=== PATIENT | male | born 1945 | race Caucasian/White ===

== ENCOUNTER 2024-07-16 17:06 | Inpatient (IN) | payer OTHER, SELFPAY ==
[2024-07-16] VITALS (13 sets, daily range): BP systolic 115–160; BP diastolic 55–76; BMI 23.7; BMI 23.2
--- NOTE | 2024-07-16 11:05 | ED.GENMED ---
History of Present Illness
<Yoselin Duffy, CORROSION TECHNICIAN - Last Filed: 07/16/24 16:19>
General
Chief Complaint: Generalized Pain
Source: patient
Exam Limitations: none
Time Seen by Provider: 07/16/24 11:05
Nursing documentation reviewed up to this point in time: agreed with
History of Present Illness
History of Present Illness:
79-year-old male with history of HTN was well, doing yard work, lifting 50 lb bags until end of May when he started feeling fatigued, developing weakness and muscle and joint pains that have gradually progressed over the past 6 weeks. His
appetite has been poor, has lost 20 lbs during this time. He has pain in his shoulders, upper back, elbows and hips. The pain 'moves around' and sometimes feels 'like my tendons' are inflamed. Pains are constant, no relieving or aggravating factors.
Saw PCP twice and had lab work at [facility] and no results available yet.
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 On Gabapentin
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
Past History
<Yoselin Duffy, CORROSION TECHNICIAN - Last Filed: 07/16/24 16:19>
Past History
ED Past Medical History: Cancer (tongue CA), HTN and Other (neuropathy upper extremities)
ED Past Surgical History: Orthopedic (C5-6 fractures)
Social History
Tobacco: Non-smoker
Alcohol: None
Personal:
Living: with family
Review of Systems
<Yoselin Duffy, CORROSION TECHNICIAN - Last Filed: 07/16/24 16:19>
Review of Systems
Allergies reviewed?: Yes
All Other Systems: ROS reviewed and negative except as documented in HPI and ROS
Constitutional: Reports fatigue; Denies fever
EENT: Denies sore throat
Respiratory: Denies trouble breathing
Cardiac: Denies chest pain, diaphoresis, palpitations or syncope
ABD/GI: Reports constipated and anorexia; Denies abdominal pain, nausea, vomiting, diarrhea, bloody stools or black stools
: Denies dysuria, frequency or difficulty voiding
Musculoskeletal: Reports joint pain and muscle pain; Denies edema
Skin: Reports no symptoms
Neurological: Reports numbness (neuropathy upper extremities (chronic)); Denies dizzy or headache
Hematologic/Lymphatic: Reports no symptoms
Phy Exam
<Yoselin Duffy, CORROSION TECHNICIAN - Last Filed: 07/16/24 16:19>
Physical Exam
Physical Exam:
GENERAL: No acute distress. A&Ox3. Frail appearing
CONSTITUTIONAL: Afebrile.
EYES: clear, conjunctivae normal
ENMT: moist mucus membranes, Pharynx nl
RESPIRATORY: Regular respirations, nonlabored, lungs clear.
CARDIOVASCULAR: Regular rate and rhythm, no murmurs, no rubs.
GI: Soft, nontender, normal BS
MUSCULOSKELETAL: Non tender extremities and trunk to palpation or movement. Moves slowly due to feeling weak. Needs help sitting up. Moving all extremities well and without pain, well perfused. No edema. OOB and ambulating independently but slowly
and with right hip discomfort
SKIN: Warm, dry, pale
PSYCH: Normal mood and affect. Well kept, interactive and appropriate
NEUROLOGIC: Awake, alert and oriented. No focal neurological deficits
Course
<Yoselin Duffy, CORROSION TECHNICIAN - Last Filed: 07/16/24 16:19>
Orders/Labs/Results
Orders:
Orders
07/16/24 11:16
0.9% Sodium Chloride 1000 ml [Nss] 1,000 ml IV BOLUS
07/16/24 11:25
Basic Metabolic Panel Urgent
CRP [C-Reactive Protein] Urgent
Complete Blood Count/With Diff Urgent
Creatine Phosphokinase Urgent
Comment: ADD ON
Lyme Progressive Urgent
Sed Rate [Erythrocyte Sed Rate] Urgent
07/16/24 11:26
Rheumatoid Factor [Rheumatoid Agglutinin] Urgent
07/16/24 13:48
Add On- LAB Urgent
Tests Added?: CPK
07/16/24 14:12
NEUROLOGY CONSULT Urgent
Consulting Provider: Lawrence Mehta
Was physician already notified: Yes
Reason for consult: progressive weakness worse in legs
07/16/24 15:20
EMG [Electromyography] Routine
07/16/24 15:53
Add On- LAB Urgent
Tests Added?: iron, ferritin, tibc, folate, vit b12
07/16/24 16:15
Add On- LAB Urgent
Tests Added?: LFTs
LFT [Nmjbe-Ydzz-Eztjdxf] Urgent
Potassium Urgent
07/16/24 16:17
Urinalysis Routine
Date Specimen was Collected: 07/16/24
Time Specimen was Collected: 16:18
Urine Osmolality Random [Osmolality, Random Urine] Routine
Urine Sodium Routine
Abnormal Lab Results
07/16/24
11:25
RBC 3.81 L 10^6/uL
(4.70-6.10)
Hgb 10.6 L g/dL
(13.0-18.0)
Hct 32.5 L %
(39.0-52.0)
MCHC 32.6 L g/dL
(33.0-37.0)
RDW 17.3 H %
(11.5-14.5)
Abs Immat Gran (auto) 0.5 H 10^3/uL
(0-0.05)
Absolute Neuts (auto) 6.8 H 10^3/uL
(1.4-6.5)
Absolute Lymphs (auto) 0.5 L 10^3/uL
(1.2-3.4)
Absolute Monos (auto) 1.1 H 10^3/uL
(0.1-0.6)
Immature Gran % 5.9 H %
(0-0.5)
Neutrophils % 75.8 H %
(42.2-75.2)
Lymphocytes % 5.8 L %
(20.5-51.1)
Monocytes % 12.1 H %
(1.7-9.3)
ESR 133 H mm/hour
(0-20)
Sodium 130 L mmol/L
(135-145)
BUN 27 H mg/dl
(9-20)
C-Reactive Protein 213.60 H mg/L
(0.0-10.00)
07/16/24 11:25
Vital Signs
Initial and Last Documented VS:
Initial Vital Signs
Temp Pulse Resp BP Pulse Ox
98.4 F 86 18 116/76 99
07/16/24 10:35 07/16/24 10:35 07/16/24 10:35 07/16/24 10:35 07/16/24 10:35
Last Documented Vital Signs
Temp Pulse Resp BP Pulse Ox
98.4 F 75 16 116/76 97
07/16/24 10:35 07/16/24 11:35 07/16/24 11:35 07/16/24 10:35 07/16/24 11:35
<Marely Corral MD - Last Filed: 07/16/24 14:10>
Orders/Labs/Results
Orders:
Orders
07/16/24 11:16
0.9% Sodium Chloride 1000 ml [Nss] 1,000 ml IV BOLUS
07/16/24 11:25
Basic Metabolic Panel Urgent
CRP [C-Reactive Protein] Urgent
Complete Blood Count/With Diff Urgent
Creatine Phosphokinase Urgent
Comment: ADD ON
Lyme Progressive Urgent
Sed Rate [Erythrocyte Sed Rate] Urgent
07/16/24 11:26
Rheumatoid Factor [Rheumatoid Agglutinin] Urgent
07/16/24 13:48
Add On- LAB Urgent
Tests Added?: CPK
07/16/24 14:12
NEUROLOGY CONSULT Urgent
Consulting Provider: Lawrence Mehta
Was physician already notified: Yes
Reason for consult: progressive weakness worse in legs
07/16/24 15:20
EMG [Electromyography] Routine
07/16/24 15:53
Add On- LAB Urgent
Tests Added?: iron, ferritin, tibc, folate, vit b12
07/16/24 16:15
Add On- LAB Urgent
Tests Added?: LFTs
LFT [Qrphv-Rwhy-Cojiffx] Urgent
Potassium Urgent
07/16/24 16:17
Urinalysis Routine
Date Specimen was Collected: 07/16/24
Time Specimen was Collected: 16:18
Urine Osmolality Random [Osmolality, Random Urine] Routine
Urine Sodium Routine
Abnormal Lab Results
07/16/24
11:25
RBC 3.81 L 10^6/uL
(4.70-6.10)
Hgb 10.6 L g/dL
(13.0-18.0)
Hct 32.5 L %
(39.0-52.0)
MCHC 32.6 L g/dL
(33.0-37.0)
RDW 17.3 H %
(11.5-14.5)
Abs Immat Gran (auto) 0.5 H 10^3/uL
(0-0.05)
Absolute Neuts (auto) 6.8 H 10^3/uL
(1.4-6.5)
Absolute Lymphs (auto) 0.5 L 10^3/uL
(1.2-3.4)
Absolute Monos (auto) 1.1 H 10^3/uL
(0.1-0.6)
Immature Gran % 5.9 H %
(0-0.5)
Neutrophils % 75.8 H %
(42.2-75.2)
Lymphocytes % 5.8 L %
(20.5-51.1)
Monocytes % 12.1 H %
(1.7-9.3)
ESR 133 H mm/hour
(0-20)
Sodium 130 L mmol/L
(135-145)
BUN 27 H mg/dl
(9-20)
C-Reactive Protein 213.60 H mg/L
(0.0-10.00)
07/16/24 11:25
Vital Signs
Initial and Last Documented VS:
Initial Vital Signs
Temp Pulse Resp BP Pulse Ox
98.4 F 86 18 116/76 99
07/16/24 10:35 07/16/24 10:35 07/16/24 10:35 07/16/24 10:35 07/16/24 10:35
Last Documented Vital Signs
Temp Pulse Resp BP Pulse Ox
98.4 F 75 16 116/76 97
07/16/24 10:35 07/16/24 11:35 07/16/24 11:35 07/16/24 10:35 07/16/24 11:35
<Yoselin Duffy, CORROSION TECHNICIAN - Last Filed: 07/16/24 16:19>
MDM/Problems Addressed
Differential Diagnosis Includes:
PMR, neoplasm, demyelinating process, GBS
MDM/Problems Addressed:
79-year-old male with history of HTN was well, doing yard work, lifting 50 lb bags until end of May when he started feeling fatigued, developing weakness and muscle and joint pains that have gradually progressed over the past 6 weeks. His
appetite has been poor, has lost 20 lbs during this time. He has pain in his shoulders, upper back, elbows and hips. The pain 'moves around' and sometimes feels 'like my tendons' are inflamed. Pains are constant, no relieving or aggravating factors.
Saw PCP twice and had lab work at [facility] and no results available yet.
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 On Gabapentin
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
Afebrile, appears moderately ill, frail, pale
12:30 PM:
CBC showing chronic anemia
CMP: Sodium 130, BUN 27, otherwise normal
CRP: Elevated at 213.6
1:30 p.m.
Sed rate:elevated 133
No sign of Giant Cell Arteritis
2:30 p.m.
Case discussed with Dr. Corral who examined pt.
Recommends neuro consult for progressive weakness, worse in legs
Dr. Mehta, Neuro consulted and in : requests admit, no head CT or lumbar puncture, he is ordering EMG
Hospitalist notified of admission.
<Yoselin Duffy NP - Last Filed: 07/16/24 16:19>
*Critical Care Note
Total Time (30-74mins, 75-104mins- exclusive of procedures): Not Applicable
ED Attending Note
<Yoselin Duffy CORROSION TECHNICIAN - Last Filed: 07/16/24 16:19>
-
Portions of this chart may have been created with voice recognition software.� Occasional wrong word or��sound alike� substitutions may have occurred due to the inherent limitations of voice recognition software.
<Marely Corral MD - Last Filed: 07/16/24 14:10>
ED Attending Note
Patient seen and examined by attending physician: Yes
I performed the substantive portion of visit, reviewed & personally made and approve the management plan that is documented in note by myself or JUSTIN.: Yes
ED Attending Note:
79-year-old male presents emergency department with a 6-week history of just not feeling well. This been a gradual onset of symptoms over this period of time. 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 Progressively, over the last 6 weeks, he has been feeling more more unwell. He denies cold or flu symptoms, fever or chills. He describes loss of appetite with a weight loss, and increasing generalized weakness. He is still able to do
his ADLs and walk without assistance. He saw his primary care doctor twice and has had ongoing workup for this. He had a colonoscopy 2 weeks ago which was generally unremarkable. He describes his joints hurting him in the area of pain will
migrate from 1 joint to another. He also notes worsening of his baseline upper extremity neuropathy. He also states that he feels like his skin 'bothers me', and describes feeling like it hurts or pickering in the anterior chest area. He denies
associated rash with this. On exam, patient pleasant awake alert. Heart regular rate and rhythm, lungs CTA, abdomen soft and nontender. Patient observed walking back from the bathroom and into bed without difficulty. 2+ patellar pulses, motor 5
out of 5 upper extremity, 4 out of 5 lower extremity bilaterally. Sensation intact to light touch, Crill nerves II through XII intact, [id number] normal. ESR and CRP markedly elevated, otherwise workup thus far generally unremarkable here.
Discharge Plan
Departure
Patient Disposition: Admit
Date of Disposition: 07/16/24
Time of Disposition: 15:10
Presentation/result/management discussed w/ accepting MD/: Hospitalist
Condition: Fair
Discharge Problem:
Generalized weakness, Abnormal weight loss
Prescriptions:
No Action
losartan 50 mg Tablet
50 mg PO DAILY
amlodipine 5 mg Tablet
5 mg PO DAILY
gabapentin 300 mg Tablet
300 mg PO TID
Referrals:
Simona Rod DO [Family Provider] -
Interventions
Interventions:
*Risk Screen - Suicide Last Done: 07/16/24 10:35
*General Assessment Last Done: 07/16/24 10:35
*Neglect/Abuse Screening Last Done: 07/16/24 11:35
*ED- Fall Risk Assessment Last Done: 07/16/24 11:35
*ED COVID-19 Vaccine History Last Done: 07/16/24 10:35
Discharge Date and Time
Print Language: TURKMEN
[2024-07-16] MEDS: NSS 1000 IV ×2 (11:33→19:50)
[2024-07-16 11:43] LABS: Hematocrit 32.5 % (39.0-52.0); Hemoglobin 10.6 g/dL (13.0-18.0); Mean Corp Hgb Conc. 32.6 g/dL (33.0-37.0); Mean Corpuscular Hgb 27.8 pg (27.0-31.0); Mean Corpuscular Volume 85.3 fL (80.0-94.0); Mean Platelet Volume 9.1 fL (7.4-10.4); Platelet Count 262 10^3/uL (130-400); Red Blood Cell Count 3.81 10^6/uL (4.70-6.10); Red Cell Dist. Width 17.3 % (11.5-14.5)
[2024-07-16 12:17] LABS: Blood Urea Nitrogen 27 mg/dl (9-20); Estimated Creatinine Clearance 88 ml/min; Glucose 96 mg/dl (70-99); Sodium 130 mmol/L (135-145); eGFR > 60.00
[2024-07-16 12:18] LABS: Calcium 9.1 mg/dl (8.4-10.2); Carbon Dioxide 28 mmol/L (22-30); Chloride 98 mmol/L (98-107)
[2024-07-16 12:27] LABS: % Basophils 0.3 % (0-2); % Eosinophils 0.1 % (0-6); % Immature Granulocytes 5.9 % (0-0.5); % Lymphocytes 5.8 % (20.5-51.1); % Monocytes 12.1 % (1.7-9.3); % Neutrophils 75.8 % (42.2-75.2); Absolute Immature Granulocytes 0.5 10^3/uL (0-0.05); Absolute Lymphocytes 0.5 10^3/uL (1.2-3.4); Absolute Monocytes 1.1 10^3/uL (0.1-0.6); Absolute Neutrophils 6.8 10^3/uL (1.4-6.5); Nucleated Red Blood Cells % 0 % (-)
[2024-07-16 12:48] LABS: Erythrocyte Sed Rate 133 mm/hour (0-20)
[2024-07-16 14:20] LABS: Rheumatoid Agglutinin Less Than 10 IU (<10 IU)
--- NOTE | 2024-07-16 15:21 | CON.NEURO ---
Neuro Assessment/Plan
Assessment
6 weeks of progressive weakness/numbness, diffuse pain. Exam with lower ext weakness, vibratory loss, 1+ reflexes
concern for GBS/CIDP
CRP 213, ESR 133
RF <10
Plan
Will admit for NCS/EMG, spoke with Dr Mcnally, who will add patient for tomorrow
as symptoms have been 6 weeks, will hold off on IVIG until after EMG
Consultation
Order
Date of Consultation: 07/16/24
Requesting Provider: Yoselin Duffy
Reason for Consult: Weakness
Subjective/Objective
Subjective Data
Date of Service: July 16, 2024
From ED notes:
79-year-old male with history of HTN was well, doing yard work, lifting 50 lb bags until end of May when he started feeling fatigued, developing weakness and muscle and joint pains that have gradually progressed over the past 6 weeks. His
appetite has been poor, has lost 20 lbs during this time. He has pain in his shoulders, upper back, elbows and hips. The pain 'moves around' and sometimes feels 'like my tendons' are inflamed. Pains are constant, no relieving or aggravating factors.
Saw PCP twice and had lab work at [facility] and [facility] and no results available yet.
Dec 2022 fell, went to [place], fx C5-6, surgery, now with neuropathy both hands and arms. On Gabapentin
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
To me, he admits to the above, ascending weakness, numbness in his legs, which are new x6 weeks. Tingling fingertips is old after a cervical spine injury. denies shortness of breath, bowel or bladder symptoms
Objective Data
Vital Signs
Temp Pulse Resp BP Pulse Ox
36.9 C 75 16 116/76 97
07/16/24 10:35 07/16/24 11:35 07/16/24 11:35 07/16/24 10:35 07/16/24 11:35
Lab Results
07/16/24 11:25
07/16/24 11:25
Sodium 130 mmol/L (135-145) L 07/16/24 11:25
Potassium mmol/L (3.5-5.1) 07/16/24 11:25
BUN 27 mg/dl (9-20) H 07/16/24 11:25
Glucose 96 mg/dl (70-99) 07/16/24 11:25
Calcium 9.1 mg/dl (8.4-10.2) 07/16/24 11:25
Patient Allergies
No Known Allergies Allergy (Verified 07/16/24 10:41)
Physical Exam
-
Awake and alert
speech clear
VFF, EOMI, face symmetric
full strength b/l UE, minimal antigravity b/l LE
absent vibration sense RUE and both knees
DTR absent UE, 1+ knees, trace ankle jerks.
Medications
-
Home Medications
�Medication �Instructions �Recorded
amlodipine 5 mg tablet 5 mg PO DAILY 07/16/24
gabapentin 300 mg tablet 300 mg PO TID 07/16/24
losartan 50 mg tablet 50 mg PO DAILY 07/16/24
--- NOTE | 2024-07-16 15:45 | HPS.HSE ---
Family Physician
-
Family Physician: Simona Rod
Chief Complaint
-
Progressive Weakness
History of Present Illness
Patient is a 79 y/o male past medical history of hypertension and upper extremity neuropathy who presents with progressive weakness. Patient reports worsening symptoms over weeks to months. He reports migrating joints pains involving the shoulders,
upper back, elbows and hips. He reports 'skin pain' describing a burning sensation. Symptoms have progressed to the point he is now having trouble walking. He reports very appetite, and has lost 20lbs over the past few months. He denies any
recent illnesses or recent vaccinations.
Medical History
Past Medical History
Past Medical History: Reports Other
Additional Past Medical History:
Essential Hypertension
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
Tongue Cancer s/p Chemo and Radiation
Past Surgical History: Reports Other
Additional Past Surgical History:
Cervical Spine Surgery
Left Shoulder Surgery
Social History
Tobacco: Non-smoker
Alcohol: None
Personal:
Family History
Family History: Not pertinent
Allergies / Home Medications
Allergies reflects when Allergies were last updated in [facility].
Home Medications with original date entered in [facility]
Allergy/Medication List:
Allergies
Allergy/AdvReac Type Severity Reaction Status Date / Time
No Known Allergies Allergy Verified 07/16/24 10:41
Home Medications
amlodipine 5 mg tablet 5 mg PO DAILY 07/16/24
gabapentin 300 mg tablet 300 mg PO TID 07/16/24
losartan 50 mg tablet 50 mg PO DAILY 07/16/24
Review of Systems
-
A 12 point ROS was completed and negative except as noted: Yes
Constitutional: Denies Fever or Chills
Respiratory: Denies Cough or Trouble Breathing
Cardiac: Denies Chest Pain or Palpitations
Abdomen/GI: Denies Abdominal Pain, Nausea or Vomiting
Physical Exam
Vital Signs
Vital Signs
Temp Pulse Resp BP Pulse Ox
98.4 F 75 16 116/76 97
07/16/24 10:35 07/16/24 11:35 07/16/24 11:35 07/16/24 10:35 07/16/24 11:35
Physical Exam
General: Comfortable and Conversant
HEENT: Moist mucous membranes and Atraumatic
Respiratory: Clear and Non Labored Respirations
Cardiac: S1/S2 and Regular Rhythm
GI: Soft and Non Tender
Rectal: Deferred by Provider
Musculoskeletal: No Clubbing, No Cyanosis and No Edema
Skin: Warm, Dry and Other (Poor coloration)
Neuro: Awake, Alert, Oriented and Other (5/5 Strength Bilateral UE; 1/5 Strength Bilateral Lower Ext)
Psych: Calm
Laboratory Results
-
07/16/24 11:25
07/16/24 11:25
Laboratory Results
Total Bilirubin Cancelled 07/16/24 11:25
AST Cancelled 07/16/24 11:25
ALT Cancelled 07/16/24 11:25
Alkaline Phosphatase Cancelled 07/16/24 11:25
Data Reviewed
-
Lab Data: Labs Reviewed by me
Impression/Plan
-
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
-Reviewed Neurology Consult
-Plan for EMG tomorrow
-Consult PT/OT
-Check Lyme, Vit B12 and TSH
Normocytic Anemia, patient denies prior history of anemia
-Check iron studies, vitamin b12 and folic acid level
Hyponatremia, mild possibly related to poor oral intake
-Check urinalysis, urine sodium and urine osmo
-Give 1L NSS due to poor oral intake and elevated BUN
-Recheck sodium in AM
Essential Hypertension
-Continue amlodipine and losartan
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
-Continue Gabapentin
DVT proph: SCDs
Code Status: Full Code
[2024-07-16 15:50] LABS: Creatine Phosphokinase 82 U/L (55-170)
--- NOTE | 2024-07-16 16:50 | W.PN.UPDATE ---
Update Note
Progress Note Update
This is an addendum to H&P written by Brenda Ramirez in 07/16/2024.� Patient seen and examined independently with PA.
79-year-old male past medical history of hypertension, upper extremity neuropathy, C5-C6 fracture, tongue cancer status post chemotherapy/radiation, presenting with worsening weakness of the lower extremities, burning of the whole body below the
nipples, joint pains for the past few months with weight loss.
Labs show anemia with hemoglobin of 10.6.� Hyponatremia sodium of 130.� Elevated inflammatory markers.
Noticeably weak on examination of the lower extremities.
Neurology concern for GBS and arranging for inpatient nerve conduction study/EMG tomorrow.� IVIG being considered tomorrow after EMG.
Anemia workup.� Check CMP to evaluate liver function.
[2024-07-16 16:52] LABS: Direct Bilirubin 0.3 mg/dl (0.0-0.4); Iron 58 ug/dl (49-181); Total Bilirubin 0.8 mg/dl (0.2-1.3)
[2024-07-16 17:00] LABS: Percent Saturation 29 % (20-50); Total Iron Binding Capacity 199 ug/dl (261-462)
[2024-07-16 17:05] LABS: ALT (SGPT) < 10 U/L (0-50); AST (SGOT) 100 U/L (17-59); Albumin 3.4 g/dl (3.5-5.0); Alkaline Phosphatase 413 U/L (38-126); Direct Bilirubin 0.3 mg/dl (0.0-0.4); Potassium 4.8 mmol/L (3.5-5.1); Total Protein 5.9 g/dl (6.3-8.2)
[2024-07-16 17:34] LABS: Urine Albumin Negative (Neg - Trace); Urine Bilirubin Negative (Negative); Urine Character Clear (Clear); Urine Color Yellow; Urine Glucose Negative (Negative); Urine Ketone Negative (Negative); Urine Leukocyte Negative (Negative); Urine Nitrite Negative (Negative); Urine Occult Blood Negative (Negative); Urine Urobilinogen Negative (Neg - 1+)
--- NOTE | 2024-07-16 17:50 | EDRN ---
this RN called the receiving unit and notified them that paper report was going to be tubed up
[2024-07-16 18:01] LABS: Osmolality Urine 538 mOsm/kg (300-900)
[2024-07-16 18:11] LABS: Folate 5.4 ng/ml (2.76-20); Vitamin B12 430 pg/ml (239-931)
[2024-07-16 18:13] LABS: Urine Sodium 128 mmol/L (30-90)
[2024-07-16 19:15] LABS: ALT (SGPT) 11 U/L (0-50); AST (SGOT) 107 U/L (17-59); Albumin 3.4 g/dl (3.5-5.0); Alkaline Phosphatase 411 U/L (38-126); Total Protein 6.2 g/dl (6.3-8.2)
[2024-07-16] MEDS: NEURONTIN 300 MG PO (21:02)
[2024-07-17] VITALS (8 sets, daily range): BP systolic 96–150; BP diastolic 52–77; PULSE 78; BMI 23.4
--- NOTE | 2024-07-17 04:37 | PTCARENOTE ---
Oral care was not performed on patient because they stated that it would be their preference to brush their teeth in the morning.
[2024-07-17 05:48] LABS: Hematocrit 28.7 % (39.0-52.0); Hemoglobin 9.5 g/dL (13.0-18.0); Mean Corp Hgb Conc. 33.1 g/dL (33.0-37.0); Mean Corpuscular Hgb 27.9 pg (27.0-31.0); Mean Corpuscular Volume 84.4 fL (80.0-94.0); Mean Platelet Volume 9.2 fL (7.4-10.4); Platelet Count 242 10^3/uL (130-400); Red Cell Dist. Width 17.2 % (11.5-14.5); White Blood Cell Count 7.5 10^3/uL (4.8-10.8)
[2024-07-17 06:13] LABS: Blood Urea Nitrogen 17 mg/dl (9-20); Calcium 8.9 mg/dl (8.4-10.2); Carbon Dioxide 28 mmol/L (22-30); Chloride 98 mmol/L (98-107); Estimated Creatinine Clearance 88 ml/min; Glucose 97 mg/dl (70-99); Potassium 4.3 mmol/L (3.5-5.1); Sodium 131 mmol/L (135-145); eGFR > 60.00
--- NOTE | 2024-07-17 06:45 | PTCARENOTE ---
Patient arrived on unit @1926 via stretcher from ED, stand and pivot from stretcher to bed. Patient AAOx3, c/o 2/10 to whole body. VSS, skin assessment completed, oriented to unit, felipe eugene within reach.
[2024-07-17] MEDS: NEURONTIN 300 MG PO ×3 (08:38→22:11)
[2024-07-17] MEDS: NORVASC 5 MG PO (08:39)
[2024-07-17] MEDS: COZAAR 50 MG PO (08:39)
--- NOTE | 2024-07-17 11:43 | W.PN.HOSP.TC ---
Today's Communication/Plan
-
Assessment / Plan
Assessment / Plan
NAD, thin
Scleral Anicteric
MMM
No JVD
CTABL
RRR, S1/S2
Soft, NT, ND, BS+
Warm, Dry
AAOx3, bilateral upper and lower extremity weakness worse in the right than the left
Generalized weakness Unclear as to etiology if this is a inflammatory demyelinating polyneuropathy versus Guillain-Shi� syndrome, motor neuron disorder
Less likely multiple sclerosis/myelopathy, CVA as weakness is not focal and is more global. And due to the chronicity of symptomatology being around 3 months makes to 4 more options more likely.
With symptomatology starting in the wintertime less likely Lyme
-EMG
-May require IVIG
-Neurology consult
-May require LP
-PT OT
-Lyme pending
-TSH 1.4
-B12 430/Folate 5.4
Transaminitis
-Will check a right upper quadrant ultrasound
-GGT for the a.m.
-Repeat LFTs
Hyponatremia
-Likely related to poor po intake
-Expect to improve with nuturtional intake
HTN
-Continue antihypertensive
Neuropathy
-Continue Gabapentin
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
Anticipated Discharge: > 48 hours
Subjective/Interval History
-
Date of Service: July 17, 2024
Seen and examined. No new complaints. No acute overnight events.
Continues to feel weakness
Sitting in chair feeling weak, unchanged
Objective Data
-
Labs:
Laboratory Results
07/17/24
05:11
WBC 7.5
Hgb 9.5 L
Hct 28.7 L
Plt Count 242
Sodium 131 L
Potassium 4.3
Chloride 98
Carbon Dioxide 28
BUN 17
Creatinine 0.7
Glucose 97
Calcium 8.9
Vital Signs:
Vital Signs
Temp Pulse Resp BP Pulse Ox
98.7 F 76 17 125/63 95
07/17/24 07:47 07/17/24 07:47 07/17/24 07:47 07/17/24 07:47 07/17/24 07:47
I&O
07/16/24 07/17/24 07/18/24
06:59 06:59 06:59
Intake Total 1140 / 1140
Output Total 620 / 620
Balance 520 / 520
--- NOTE | 2024-07-17 14:57 | NS.EMG ---
Electromyogram (EMG) Study
EMG/NCS Summary
EMG/nerve conduction study of the upper and lower limbs was completed at the patient's bedside.
Electrodiagnostic Impressions:
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
Severe chronic bilateral median neuropathy at the wrist (carpal tunnel syndrome)
Full dictated report, tabular data, and waveforms to follow.
--- NOTE | 2024-07-17 15:31 | CM ---
Pt off floor for testing . Spoke with Chula. Chula cares for her brother and dad in their home. They lives in 2 story with o step to enter and 12 steps to bed and bathroom. He is assisted in all activities of daily living.Will need PT OT for dc
plan. No Adaptive devices.
Pt had [facility] hx / [facility] history
Pharmacy [facility]
PCP DR Jelly Tadeo
PLAN Home with possible VN depending on PT OT evals
--- NOTE | 2024-07-17 19:05 | W.PN.NEURO.1 ---
Today's Communication / Plan
-
CT head, Chest, abdomen, pelvis
patient aware of liver masses, concern for mets
Neuro Assessment/Plan
Assessment
6 weeks of progressive weakness/numbness, diffuse pain. Exam with lower ext weakness, vibratory loss, 1+ reflexes
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
CRP 213, ESR 133
RF <10
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
Liver ultrasound: 3 masses, concern for mets
I spoke with patient and with Dr Shaw; plan for CT head, Chest, abdomen, pelvis
Subjective/Objective
Subjective Data
Date of Service: July 17, 2024
feels about the same
Objective Data
Vital Signs
Temp Pulse Resp BP Pulse Ox
37.4 C 84 17 115/52 95
07/17/24 18:42 07/17/24 18:42 07/17/24 18:42 07/17/24 18:42 07/17/24 18:42
Lab Results
07/17/24 05:11
07/17/24 05:11
Sodium 131 mmol/L (135-145) L 07/17/24 05:11
Potassium 4.3 mmol/L (3.5-5.1) 07/17/24 05:11
BUN 17 mg/dl (9-20) 07/17/24 05:11
Glucose 97 mg/dl (70-99) 07/17/24 05:11
Calcium 8.9 mg/dl (8.4-10.2) 07/17/24 05:11
Vitamin B12 430 pg/ml (239-931) 07/16/24 11:25
Patient Allergies
No Known Allergies Allergy (Verified 07/16/24 10:41)
Physical Exam
-
Awake and alert
speech clear
VFF, EOMI, face symmetric
full strength b/l UE, minimal antigravity b/l LE
absent vibration sense RUE and both knees
DTR absent UE, 1+ knees, trace ankle jerks.
[2024-07-18 04:03] VITALS: BP 119/63
[2024-07-18 06:00] VITALS: BMI 22.9
[2024-07-18 06:08] LABS: Mean Corp Hgb Conc. 32.3 g/dL (33.0-37.0); Mean Corpuscular Hgb 27.4 pg (27.0-31.0); Mean Corpuscular Volume 84.9 fL (80.0-94.0); Mean Platelet Volume 9.2 fL (7.4-10.4); Platelet Count 258 10^3/uL (130-400); Red Blood Cell Count 3.65 10^6/uL (4.70-6.10); Red Cell Dist. Width 17.2 % (11.5-14.5); White Blood Cell Count 8.9 10^3/uL (4.8-10.8)
[2024-07-18 06:31] LABS: ALT (SGPT) 11 U/L (0-50); AST (SGOT) 78 U/L (17-59); Alkaline Phosphatase 442 U/L (38-126); Blood Urea Nitrogen 20 mg/dl (9-20); Calcium 9.1 mg/dl (8.4-10.2); Carbon Dioxide 28 mmol/L (22-30); Chloride 100 mmol/L (98-107); Direct Bilirubin 0.3 mg/dl (0.0-0.4); Estimated Creatinine Clearance 77 ml/min; GGTP 76 U/L (15-73); Glucose 93 mg/dl (70-99); Potassium 4.5 mmol/L (3.5-5.1); Sodium 135 mmol/L (135-145); Total Bilirubin 0.7 mg/dl (0.2-1.3); Total Protein 5.6 g/dl (6.3-8.2); eGFR > 60.00
[2024-07-18 07:05] VITALS: BP 126/60
[2024-07-18] MEDS: COZAAR 50 MG PO (08:25)
[2024-07-18] MEDS: NEURONTIN 300 MG PO ×3 (08:25→21:11)
[2024-07-18] MEDS: NORVASC 5 MG PO (08:27)
[2024-07-18] MEDS: OMNIPAQUE 50 ML PO (09:00)
--- NOTE | 2024-07-18 09:58 | W.PN.HOSP.TC ---
Today's Communication/Plan
-
Pending CT
will attept to discuss with ([phone]) after results
further mgmt as per neurology
Assessment / Plan
Assessment / Plan
NAD, thin
Scleral Anicteric
MMM
No JVD
CTABL
RRR, S1/S2
Soft, NT, ND, BS+
Warm, Dry
AAOx3, bilateral upper and lower extremity weakness worse in the right than the left
Generalized weakness Unclear as to etiology if this is a inflammatory demyelinating polyneuropathy versus Guillain-Shi� syndrome, motor neuron disorder vs paraneoplastic syndrome
Less likely multiple sclerosis/myelopathy, CVA as weakness is not focal and is more global. And due to the chronicity of symptomatology being around 3 months makes to 4 more options more likely.
With symptomatology starting in the wintertime less likely Lyme
-EMG
-May require IVIG
-Neurology consult
-May require LP
-PT OT
-Lyme pending
-TSH 1.4
-B12 430/Folate 5.4
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
-with new hepatic masses - CT head/Chest/Abd/Pelvis
Transaminitis
-upper quadrant ultrasound with multiple hepatic masses
-follow LFT
Hyponatremia
-Likely related to poor po intake
-Expect to improve with nuturtional intake
HTN
-Continue antihypertensive
Neuropathy
-Continue Gabapentin
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
Anticipated Discharge: > 48 hours
Subjective/Interval History
-
Date of Service: July 18, 2024
Objective Data
-
Labs:
Laboratory Results
07/18/24 07/18/24
05:20 05:21
WBC 8.9
Hgb 10.0 L
Hct 31.0 L
Plt Count 258
Sodium 135
Potassium 4.5
Chloride 100
Carbon Dioxide 28
BUN 20
Creatinine 0.8
Glucose 93
Calcium 9.1
Total Bilirubin 0.7
AST 78 H
ALT 11
Alkaline Phosphatase 442 H
Vital Signs:
Vital Signs
Temp Pulse Resp BP Pulse Ox
98.0 F 76 17 126/60 96
07/18/24 07:05 07/18/24 07:05 07/18/24 07:05 07/18/24 07:05 07/18/24 07:05
I&O
07/17/24 07/18/24 07/19/24
06:59 06:59 06:59
Intake Total 1140 / 1140 240 / 240
Output Total 620 / 620 360 / 360
Balance 520 / 520 240 / 240 -360 / -360
Review of Systems
-
History Source: Patient
Neuro: Reports Other (b/l LE weakness)
Physical Exam
-
General: No Apparent Distress
HEENT: Normocephalic
Respiratory: Clear to Auscultation
GI: Soft, Nontender and Nondistended
Neuro: Awake, Alert, Oriented and AO x 3
Psych: Calm
--- NOTE | 2024-07-18 12:59 | W.PN.UPDATE ---
Update Note
Progress Note Update
#Extensive heterogeneous hepatic lesions measuring up to 4.5 cm in the right hepatic lobe which likely represent hepatic metastasis
#diffuse osseous metastatic disease
#soft tissue nodularity within the lateral paraspinal soft tissues along the thoracic spine with extension into the spinal canal at the T6 level with associated high-grade canal stenosis
Advised close follow up with existent Oncology and ENT. Will attempt to contact Oncologist from [facility] who already managing patient
MRI spine as per neurology
[2024-07-18] MEDS: DECADRON 10 MG IV (14:31)
[2024-07-18 15:05] VITALS: BP 121/71
--- NOTE | 2024-07-18 15:15 | PN.CDI ---
Addendum entered and electronically signed by Nirmal Samuel MD 07/18/24 18:05:
no change to be made
Original Note:
CDI
- -
CDI:
Physician Documentation Request
Admit Date: 07/16/24 17:06
Dear Doctor Lizzie,
Please review the following and provide your response in the progress notes.
Clinical Indicators:
- 07/17 Intelligence Engineer note indicates moderate protein calorie malnutrition
- Unintentional weight loss >10% in 6 months
- Nutrient intake </= 75% estimated energy needs, >/= 1 month
Based on the above information and your assessment, which of the following most accurately represents the patient's nutritional status?
Moderate protein calorie malnutrition
Other (please specify)
Drums Criteria ([facility] Hospitalist 2017)
2 or more criteria must be present for either
non severe or severe malnutrition
Note that the criteria differs related to the
presence of an acute or chronic illness
Acute Illness Chronic Illness
Energy Intake Non Severe: <75% for >7 days Non Severe: <75% for >1 month
Severe: <50% for >5 days Severe: <75% for >1 month
Weight Loss Non Severe: 1-2% over 1 week Non Severe: 5% over 1 month
5% over 1 month 7.5% over 3 months
7.5% over 3 months 10% over 6 months
1 year N/A 20% over 1 year
Severe: >2% over 1 week Severe: >5% over 1 month
>5% over 1 month >7.5% over 3 months
>7.5% over 3 months >10% over 6 months
1 year N/A >20% over 1 year
Body Fat Non Severe: Mild Decrease Non Severe: Mild Loss
Severe: Moderate Decrease Severe: Severe Loss
Muscle Mass Non Severe: Mild Decrease Non Severe: Mild Loss
Severe: Moderate Decrease Severe: Severe Loss
Fluid Accumulation Non Severe: Mild Accumulation Non Severe: Mild Accumulation
Severe: Moderate to severe Severe: Moderate to severe
accumulation accumulation
Reduced Healthcare Translator Strength Non Severe: N/A Non Severe: N/A
Severe: Measurably reduced Severe: Measurably reduced
Additional criteria that can be used to Determine if Mild or Moderate Malnutrition (Merck Manual 2018)
Mild Moderate Severe
Albumin gm/dl <3.0 gm/dl <2.5 gm/dl <2.0 gm/dl
Pre Albumin mg/dl <15 gm/dl <10 mg/dl <5.0 mg/dl
BMI <18.5 <17 <16
Use of terms such as suspected, likely, concern for, or probable (associated with a specific diagnosis that is being evaluated, monitored, or treated as if it exists) are acceptable and can be coded in the inpatient setting, when documented at the
time of discharge.
Thank you,
Vinicius Elmore RN
CDI Specialist
Please use your independent medical judgment in providing your response.
[2024-07-18 23:45] VITALS: BP 115/63
[2024-07-19 05:55] LABS: Hematocrit 33.1 % (39.0-52.0); Mean Corp Hgb Conc. 33.2 g/dL (33.0-37.0); Mean Corpuscular Hgb 28.1 pg (27.0-31.0); Mean Corpuscular Volume 84.7 fL (80.0-94.0); Mean Platelet Volume 9.3 fL (7.4-10.4); Platelet Count 289 10^3/uL (130-400); Red Blood Cell Count 3.91 10^6/uL (4.70-6.10); Red Cell Dist. Width 17.4 % (11.5-14.5); White Blood Cell Count 10.6 10^3/uL (4.8-10.8)
[2024-07-19 06:00] VITALS: BMI 22.7
[2024-07-19 06:16] LABS: Blood Urea Nitrogen 27 mg/dl (9-20); Calcium 9.1 mg/dl (8.4-10.2); Carbon Dioxide 28 mmol/L (22-30); Chloride 101 mmol/L (98-107); Estimated Creatinine Clearance 88 ml/min; Glucose 129 mg/dl (70-99); Potassium 4.5 mmol/L (3.5-5.1); Sodium 137 mmol/L (135-145); eGFR > 60.00
[2024-07-19 07:23] VITALS: BP 131/68
[2024-07-19] MEDS: NEURONTIN 300 MG PO ×2 (07:38→15:33)
[2024-07-19] MEDS: NORVASC 5 MG PO (07:38)
[2024-07-19] MEDS: COZAAR 50 MG PO (07:38)
[2024-07-19] MEDS: DECADRON 6 MG IV (07:39)
--- NOTE | 2024-07-19 13:42 | W.PN.NEURO.1 ---
Today's Communication / Plan
-
d/c home with dexamethasone 4 mg bid
Neuro Assessment/Plan
Assessment
6 weeks of progressive weakness/numbness, diffuse pain. Exam with lower ext weakness, vibratory loss, 1+ reflexes
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
CRP 213, ESR 133
RF <10
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
Liver ultrasound: 3 masses, concern for mets
CT head, Chest, abdomen, pelvis showing more liver mets, bone mets, and soft tissue masses, including one at T6 extending to spinal canal
Initially i wanted mri thoracic spine to better evaluate; however he has a staple placed during colonoscopy 2 weeks ago, supposed to fall out but hasn't yet;
on further thought, I don't think it will change anything, and anything that I can do would be placing a band aid on the problem
patient and I decided that he can go home and follow up with his outpatient oncologist
Plan
d/c home with dexamethasone 4 mg po BID
Subjective/Objective
Subjective Data
Date of Service: July 19, 2024
sitting up in chair
feels stronger after steroids
Objective Data
Vital Signs
Temp Pulse Resp BP Pulse Ox
36.6 C 69 16 131/68 95
07/19/24 07:23 07/19/24 07:23 07/19/24 07:23 07/19/24 07:23 07/19/24 07:23
Lab Results
07/19/24 05:10
07/19/24 05:10
Sodium 137 mmol/L (135-145) 07/19/24 05:10
Potassium 4.5 mmol/L (3.5-5.1) 07/19/24 05:10
BUN 27 mg/dl (9-20) H 07/19/24 05:10
Glucose 129 mg/dl (70-99) H 07/19/24 05:10
Calcium 9.1 mg/dl (8.4-10.2) 07/19/24 05:10
Vitamin B12 430 pg/ml (239-931) 07/16/24 11:25
Patient Allergies
No Known Allergies Allergy (Verified 07/16/24 10:41)
Physical Exam
-
AAOx3
strength 5-/5 b/l LE
sensation intact touch/pin
--- NOTE | 2024-07-19 13:46 | CM ---
Met with patient at bedside; reported that Attending told him he is being discharged today; family will transport home
IMM benefit explained; form signed @ 1350
Plan: Discharge to home with home health; no agency preference; options provided; referral [id number] via [facility]
--- NOTE | 2024-07-19 13:47 | W.DCSUMMARY ---
Discharge Summary
Discharge Data
Date of Admission: 07/16/24
Date of Discharge: 07/19/24
-
Pending Results: No
Hospital Course
79 y/o male past medical history of hypertension and upper extremity neuropathy
Presented with progressive weakness that was associated with migrating joint pains involving shoulders upper back elbows hips with associated poor appetite lost 20 pounds over the last few months. Evaluated by neurology EMG obtain without acute
findings. CT brain without acute findings. Noted to have liver enzyme abnormalities with a high alk phos therefore abdominal ultrasound was obtained that demonstrated multiple hepatic masses highly suspicious for hepatic metastatic disease. CT
chest abdomen pelvis demonstrated some high-grade canal stenosis in the thoracic region. Neurology recommended to start dexamethasone and to continue this indefinitely. Will need outpatient oncology follow-up and PCP follow up.
Abdominal ultrasound
IMPRESSION:
Normal appearance of the gallbladder with no evidence for biliary ductal dilation.
Multiple hepatic masses are identified, highly suspicious for hepatic metastatic disease.
CTCap
IMPRESSION:
1. Extensive heterogeneous hepatic lesions measuring up to 4.5 cm in the right hepatic lobe which likely represent hepatic metastasis.
2. Heterogeneous, sclerotic appearance of the bones suspicious for diffuse osseous metastatic disease. There is heterogeneous soft tissue nodularity within the lateral paraspinal soft tissues along the thoracic spine with extension into the spinal
canal at the T6 level with associated high-grade canal stenosis. The soft tissue lesions may represent osseous metastatic extension, although extra medullary hematopoiesis can appear similar. Consider MRI for further evaluation.
3. There is no definite primary malignancy identified although given the appearance of the bones prostate may be the primary.
4. Small bilateral pleural effusions with bibasilar atelectasis.
HeadCT
IMPRESSION:
No acute intracranial abnormality noted.
Seen and examined on the day of discharge. No new complaints. No acute overnight events.
Sitting in bedside chair
NAD, thin and cachectic
Scleral Anicteric
MMM
No JVD
CTABL
RRR, S1/S2
Soft, NT, ND, BS+
Warm, Dry
AAOx3, bilateral upper and lower extremity weakness worse in the right than the left
Calm
More than 30 minutes spent in discharge including
Final examination of the patient
Summarizing hospital stay
Instructions for continuing care to all relevant caregivers
Preparation of discharge records, prescriptions, and referral forms
Total time spent (in minutes): 33mins
Discharge Plan
-
Patient Disposition: Home (Routine Discharge)
Discharge Diagnosis/Procedures: Hepatic metastatic
High grade canal stenosis secondary to lateral paraspinal soft tissue along with thoracic spine with extension into spinal at T6 level
Condition: Serious
Diet: As tolerated
Activity: As tolerated
Activity Restrictions/Additional Instructions:
Presented with progressive weakness that was associated with migrating joint pains involving shoulders upper back elbows hips with associated poor appetite lost 20 pounds over the last few months. Evaluated by neurology EMG obtain without acute
findings. CT brain without acute findings. Noted to have liver enzyme abnormalities with a high alk phos therefore abdominal ultrasound was obtained that demonstrated multiple hepatic masses highly suspicious for hepatic metastatic disease. CT
chest abdomen pelvis demonstrated some high-grade canal stenosis in the thoracic region. Neurology recommended to start dexamethasone and to continue this indefinitely. Will need outpatient oncology follow-up and PCP follow up.
Abdominal ultrasound
IMPRESSION:
Normal appearance of the gallbladder with no evidence for biliary ductal dilation.
Multiple hepatic masses are identified, highly suspicious for hepatic metastatic disease.
CTCap
IMPRESSION:
1. Extensive heterogeneous hepatic lesions measuring up to 4.5 cm in the right hepatic lobe which likely represent hepatic metastasis.
2. Heterogeneous, sclerotic appearance of the bones suspicious for diffuse osseous metastatic disease. There is heterogeneous soft tissue nodularity within the lateral paraspinal soft tissues along the thoracic spine with extension into the spinal
canal at the T6 level with associated high-grade canal stenosis. The soft tissue lesions may represent osseous metastatic extension, although extra medullary hematopoiesis can appear similar. Consider MRI for further evaluation.
3. There is no definite primary malignancy identified although given the appearance of the bones prostate may be the primary.
4. Small bilateral pleural effusions with bibasilar atelectasis.
HeadCT
IMPRESSION:
No acute intracranial abnormality noted.
Referrals:
Simona Rod DO [Family Provider] -
Prescriptions:
New
dexamethasone 4 mg tablet
4 mg PO BID Qty: 60 0RF
Continued
losartan 50 mg Tablet
50 mg PO DAILY
amlodipine 5 mg Tablet
5 mg PO DAILY
gabapentin 300 mg Tablet
300 mg PO TID
Discharge Orders:
Discharge Patient (As Directed); Ordered 07/19/24
Ordered By: Ed Shaw
Discharge Date and Time
Print Language: MONGOLIAN
[2024-07-19 14:37] LABS: Lyme Antibody Screen, EIA Negative (Negative)
[2024-07-19 15:24] VITALS: BP 115/62
[2024-07-19 18:24] LABS: Hepatitis A Antibody, Total Negative (Negative); Hepatitis B Surface Antibody Negative; Hepatitis C Antibody Negative (Negative)
== END 2024-07-19 16:52 | disposition home health service (06) | DRG 436 ==
LOC: 3 WEST ACU 17:06
PROVIDERS: Physician Assistant Medical; Registered Nurse; ADMITTING PHYSICIAN Hospitalist; ATTENDING PHYSICIAN Hospitalist; CONSULT PHYSICIAN Psychiatry & Neurology Clinical Neurophysiology; EMERGENCY PHYSICIAN Emergency Medicine; FAMILY PHYSICIAN Family Medicine
DX: C78.7 Secondary malignant neoplasm of liver and intrahepatic bile duct (principal); C79.51 Secondary malignant neoplasm of bone; E87.1 Hypo-osmolality and hyponatremia; R64 Cachexia; I10 Essential (primary) hypertension; G62.9 Polyneuropathy, unspecified; D63.0 Anemia in neoplastic disease; M48.04 Spinal stenosis, thoracic region; Z85.810 Personal history of malignant neoplasm of tongue; Z92.3 Personal history of irradiation; Z92.21 Personal history of antineoplastic chemotherapy; Z68.22 Body mass index [BMI] 22.0-22.9, adult
CPT/HCPCS: 70450; 71260; 74177; 76700; 80048; 80053; 80076; 81003; 82248; 82550; 82607; 82728; 82746; 82977; 83540; 83550; 83935; 84132; 84300; 84443; 85025; 85027; 85652; 86140; 86430; 86618; 86705; 86706; 86708; 86803; 95886; 95913; 96360; 97162; 97166; 99285; Q9967

== ENCOUNTER 2024-09-11 23:59 | Inpatient (IN) | payer OTHER, SELFPAY ==
[2024-09-11 17:31] VITALS: BP 129/76
[2024-09-11 18:01] LABS: % Basophils 0.3 % (0-2); % Eosinophils 0.1 % (0-6); % Immature Granulocytes 4.5 % (0-0.5); % Lymphocytes 8.2 % (20.5-51.1); % Monocytes 9.2 % (1.7-9.3); % Neutrophils 77.7 % (42.2-75.2); Absolute Immature Granulocytes 0.4 10^3/uL (0-0.05); Absolute Lymphocytes 0.6 10^3/uL (1.2-3.4); Absolute Monocytes 0.7 10^3/uL (0.1-0.6); Hematocrit 33.4 % (39.0-52.0); Hemoglobin 10.8 g/dL (13.0-18.0); Mean Corp Hgb Conc. 32.3 g/dL (33.0-37.0); Mean Corpuscular Hgb 28.5 pg (27.0-31.0); Mean Corpuscular Volume 88.1 fL (80.0-94.0); Mean Platelet Volume 9.5 fL (7.4-10.4); Nucleated Red Blood Cells % 6.2 % (-); Platelet Count 133 10^3/uL (130-400); Red Blood Cell Count 3.79 10^6/uL (4.70-6.10); Red Cell Dist. Width 27.2 % (11.5-14.5); White Blood Cell Count 7.7 10^3/uL (4.8-10.8)
[2024-09-11 18:03] LABS: Lactic Acid 4.3 mmol/L (0.7-2.0)
[2024-09-11 18:07] LABS: Anisocytosis 1+; Normal RBC Morphology No
[2024-09-11 18:08] LABS: Polychromasia Slight
[2024-09-11 18:09] LABS: Macrocytosis 2+
[2024-09-11 18:10] LABS: ALT (SGPT) 67 U/L (0-50); AST (SGOT) 126 U/L (17-59); Albumin 3.4 g/dl (3.5-5.0); Blood Urea Nitrogen 28 mg/dl (9-20); Carbon Dioxide 27 mmol/L (22-30); Chloride 101 mmol/L (98-107); Glucose 104 mg/dl (70-99); Lipase 90 U/L (23-300); Ovalocytes Slight; Potassium 5.4 mmol/L (3.5-5.1); Sodium 135 mmol/L (135-145); Total Bilirubin 1.3 mg/dl (0.2-1.3); Total Protein 6.1 g/dl (6.3-8.2); eGFR > 60.00
[2024-09-11 18:11] LABS: Stomatocytes Slight
[2024-09-11 18:15] LABS: Hypochromasia 1+
[2024-09-11 18:20] LABS: Alkaline Phosphatase 1205 U/L (38-126)
[2024-09-11 20:04] VITALS: BMI 22.8
[2024-09-11 20:06] VITALS: BP 113/72
[2024-09-11 21:00] VITALS: BP 128/77
[2024-09-11] MEDS: DILAUDID 0.5 MG IV ×2 (21:59→23:07)
[2024-09-11] MEDS: NSS 1000 IV (22:00)
[2024-09-11 22:18] VITALS: BP 123/68
[2024-09-11 22:56] LABS: Lactic Acid 2.2 mmol/L (0.7-2.0)
[2024-09-11 23:00] VITALS: BP 130/65
--- NOTE | 2024-09-11 23:04 | ED.GENMED ---
History of Present Illness
General
Chief Complaint: Abdominal Pain
Source: patient
Exam Limitations: none
Time Seen by Provider: 09/11/24 21:05
Nursing documentation reviewed up to this point in time: agreed with
History of Present Illness
History of Present Illness:
Patient is a 79-year-old male with history hypertension, metastatic disease with mets to liver and spine presenting to the emergency department with right upper abdominal pain. Patient states symptoms started around midnight last night and been
constant since. He denies any associated fever, chills, nausea, or vomiting. No diarrhea/constipation, or urinary symptoms. Patient denies any hematochezia or melena. Patient denies any chest pain or shortness of breath.
No history of similar symptoms. No history of abdominal surgeries.
Patient is scheduled to have his first infusion of Keytruda tomorrow.
Past History
Past History
ED Past Medical History: Cancer (tongue CA), HTN and Other (neuropathy upper extremities)
ED Past Surgical History: Orthopedic (C5-6 fractures)
Social History
Tobacco: Non-smoker
Alcohol: None
Personal:
Living: with family
Review of Systems
Review of Systems
Allergies reviewed?: Yes
All Other Systems: ROS reviewed and negative except as documented in HPI and ROS
Phy Exam
Physical Exam
Physical Exam:
Vitals: Tachycardic on arrival, improved by my assessment. Otherwise vital signs stable. Afebrile
General: Patient is chronically ill-appearing, cachectic
Skin: Warm and dry, no rashes or lesions
Head: Normocephalic, atraumatic
Eyes: Sclera nonicteric.
Throat: Protecting airway
Neck: Normal ROM, no cervical spine tenderness, no meningismus
Cardiac: Regular rate and rhythm, no murmurs.
Pulm: Normal respiratory effort, no wheezes, rales, rhonchi heard on exam.
Abdomen: Soft, tender in right upper quadrant. No tenderness McBurney's point.
Extremities: No evidence of cyanosis or edema. Palpable DP pulses bilaterally
Neuro: AAOx3. Grossly intact.
Psychiatric: Normal affect.
Course
Orders/Labs/Results
Orders:
Orders
09/11/24 17:40
Complete Blood Count/With Diff Urgent
Comprehensive Metabolic Panel Urgent
Lactic Acid Urgent
Lipase Urgent
09/11/24 21:16
0.9% Sodium Chloride 1000 ml [Nss] 1,000 ml IV BOLUS
HYDROmorphone [Dilaudid] 0.5 mg IV NOW STA
09/11/24 21:17
CT Abd/pelvis W Iv Cont Urgent
Comment: elevated LFTs
Reason For Exam: Right upper abdominal pain
09/11/24 22:36
Lactic Acid Q4H
Comment: CANCEL 2nd LACTIC ACID IF 1st LACTIC ACID IS LESS THAN 2
09/11/24 23:00
HYDROmorphone [Dilaudid] 0.5 mg IV NOW STA
09/11/24 23:38
Admit/Transfer Patient As Directed
Co-Sign Provider:
Level of Care: Inpatient admission
Assign to:: Medical/Surgical
Physician / Group: maye
Diagnosis: liver mets
Reason for Hospitalization: liver mets
Expected length of stay greater than two midnights?: Yes
ELOS- Estimated Length of Stay in days: 2
I certify the patient meets the requirements for IP care: Yes
Code Status As Directed
Resuscitation Status: Full Code
PRN Pain Medication Management As Directed
May give lesser potent ordered pain med per pt: Yes
preference::
Protocol:: Medication orders for pain may be administered in a
manner that supports deferring to patient preference
when the pt is:
- Requesting an ordered lesser potent pain medication.
Least to most potent pain medications are defined
as: acetaminophen < NSAID < tramadol < opioids
(morphine, oxycodone, hydromorphone).
- Requesting a lesser dose of the same medication IF
ORDERED.
- Requesting a less intrusive route of administration
if both routes are prescribed by the provider (PO <
IV).
09/12/24 02:15
Lactic Acid Q4H
Comment: CANCEL 2nd LACTIC ACID IF 1st LACTIC ACID IS LESS THAN 2
Abnormal Lab Results
09/11/24 09/11/24
17:40 22:36
RBC 3.79 L 10^6/uL
(4.70-6.10)
Hgb 10.8 L g/dL
(13.0-18.0)
Hct 33.4 L %
(39.0-52.0)
MCHC 32.3 L g/dL
(33.0-37.0)
RDW 27.2 H %
(11.5-14.5)
Abs Immat Gran (auto) 0.4 H 10^3/uL
(0-0.05)
Absolute Lymphs (auto) 0.6 L 10^3/uL
(1.2-3.4)
Absolute Monos (auto) 0.7 H 10^3/uL
(0.1-0.6)
Immature Gran % 4.5 H %
(0-0.5)
Neutrophils % 77.7 H %
(42.2-75.2)
Lymphocytes % 8.2 L %
(20.5-51.1)
Potassium 5.4 H mmol/L
(3.5-5.1)
BUN 28 H mg/dl
(9-20)
Glucose 104 H mg/dl
(70-99)
Lactic Acid 4.3 H* mmol/L 2.2 H mmol/L
(0.7-2.0) (0.7-2.0)
AST 126 H U/L
(17-59)
ALT 67 H U/L
(0-50)
Alkaline Phosphatase 1205 H U/L
(38-126)
Total Protein 6.1 L g/dl
(6.3-8.2)
Albumin 3.4 L g/dl
(3.5-5.0)
09/11/24 17:40
09/11/24 17:40
Vital Signs
Initial and Last Documented VS:
Initial Vital Signs
Temp Pulse Resp BP Pulse Ox
99.3 F 110 20 129/76 98
09/11/24 17:31 09/11/24 17:31 09/11/24 17:31 09/11/24 17:31 09/11/24 17:31
Last Documented Vital Signs
Temp Pulse Resp BP Pulse Ox
99.3 F 76 20 130/65 97
09/11/24 17:31 09/11/24 23:00 09/11/24 23:00 09/11/24 23:00 09/11/24 23:00
MDM/Problems Addressed
Differential Diagnosis Includes:
Not limited to: Progression of disease biliary colic, acute cholecystitis, choledocholithiasis, pancreatitis, etc.
MDM/Problems Addressed:
79-year-old male with history as documented presenting with acute onset right upper quadrant abdominal pain. No associated fever, vomiting, diarrhea. Patient mildly tachycardic on arrival, otherwise vital signs stable. He is afebrile. Physical
exam as above. Patient appears chronically ill and cachectic although no acute distress. Abdomen is soft with moderate tenderness in right upper quadrant. No tenderness McBurney's point. Cardio/pulmonary assessment unremarkable. Differential
broad at this time. Considerations include biliary etiology, acute intra-abdominal infection, or progression of disease. Labs initiated in triage significant for anemia which appears baseline. He has no leukocytosis. Patient has mild
hyperkalemia and a lactic acid of 4.3 likely secondary to hypovolemia. Patient has worsening transaminitis and significant elevated alkaline phosphatase level of 1205. Will obtain CT imaging abdomen/pelvis for further evaluation. Will give IV
fluids and pain control.
Update: CT report shows severe hepatic metastatic disease as well as extensive osseous metastatic disease. No evidence of acute intra-abdominal infection. Findings discussed at length with patient and his . Repeat lactic acid of 2.2 after
first liter of IV fluids. Check lactic and hyperkalemia likely secondary to dehydration. Well elevated liver function/alk phos and abdominal pain may be secondary to progression of disease�concern for possible obstructive process. Will admit
patient to hospital for continued IV fluids, pain management, further evaluation for obstructive process. He may need possible MRI/MRCP. Patient accepted to hospitalist service in stable condition. Case discussed with attending physician.
Chronic conditions affecting care:
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
Acute Exacerbation and/or Progression of Chronic Illness:
Acute progression of metastatic disease, transaminitis
*Radiology
Radiology exam reviewed: radiology read reviewed
*Pulse Oximetry
Patient hypoxic: no
*EKG
Interpreted by ED Provider?: NA
*Box Feeder Interpretation
Rate: Box Feeder- N/A
*Critical Care Note
Total Time (30-74mins, 75-104mins- exclusive of procedures): Not Applicable
Patient Management
Discussion with other providers: Hospitalist
Escalation/DeEscalation of care consider admission/obs:
Admit indicated
ED Attending Note
-
Portions of this chart may have been created with voice recognition software.� Occasional wrong word or��sound alike� substitutions may have occurred due to the inherent limitations of voice recognition software.
Discharge Plan
Departure
Patient Disposition: Admit
Date of Disposition: 09/11/24
Time of Disposition: 23:02
Presentation/result/management discussed w/ accepting MD/DO: Hospitalist
Discharge Problem:
Abdominal pain, Metastatic disease, Transaminitis
Prescriptions:
No Action
amlodipine 5 mg Tablet
5 mg PO Q48H
gabapentin 300 mg Tablet
600 mg PO TID
Referrals:
Simona Rod DO [Family Provider] -
Interventions
Interventions:
*General Assessment Last Done: 09/11/24 23:21
*ED- Fall Risk Assessment Last Done: 09/11/24 23:21
*ED COVID-19 Vaccine History Last Done: 09/11/24 23:21
VY-Sozfqo-Lmnpnmnvzq Assessment Last Done: 09/11/24 23:07
Discharge Date and Time
Print Language: CROATIAN
--- NOTE | 2024-09-11 23:40 | HPS.HSE ---
Family Physician
-
Family Physician: Simona Rod
Chief Complaint
-
right upper abdomimal pain
History of Present Illness
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
night. He has had decreased appetite for the past day and has not eaten anything. Denies any fevers or chills, nausea or vomiting or diarrhea. Denies any blood in the stool.
He has a history of tongue cancer in the past status post chemotherapy and radiation and was discovered to have liver metastases last month. He followed up with his oncologist at [facility] and had a liver biopsy which confirmed
metastases from the tongue. He is supposed to start Keytruda tomorro at [facility]. He reportedly had an MRI few weeks ago confirming liver and spinal metastases
He denies any history of gallstones.
He used to drink alcohol. Never smoked.
His father had colon cancer.
Medical History
Past Medical History
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
Past Surgical History: Reports None
Social History
Tobacco: Non-smoker
Alcohol: Occasional
Drug: None
Family History
Family History: Not pertinent
Allergies / Home Medications
Allergies reflects when Allergies were last updated in Subtextual.
Home Medications with original date entered in Subtextual
Allergy/Medication List:
Allergies
Allergy/AdvReac Type Severity Reaction Status Date / Time
No Known Allergies Allergy Verified 07/16/24 10:41
Home Medications
amlodipine 5 mg tablet 5 mg PO Q48H Blood Pressure 07/16/24
gabapentin 300 mg tablet 600 mg PO TID Pain 07/16/24
Review of Systems
-
History Source: Patient
A 12 point ROS was completed and negative except as noted: Yes
Constitutional: Reports No Symptoms
EENT: Reports No Symptoms
Respiratory: Reports No Symptoms
Cardiac: Reports No Symptoms
Abdomen/GI: Reports See HPI
: Reports No Symptoms
Musculoskeletal: Reports No Symptoms
Skin: Reports No Symptoms
Neurological: Reports No Symptoms
Endocrine: Reports No Symptoms
Hematologic/Lymphatic: Reports No Symptoms
Psych: Reports No Symptoms
Physical Exam
Vital Signs
Vital Signs
Temp Pulse Resp BP Pulse Ox
99.3 F 76 20 130/65 97
09/11/24 17:31 09/11/24 23:00 09/11/24 23:00 09/11/24 23:00 09/11/24 23:00
Physical Exam
General: Well Developed, Well Nourished and No Apparent Distress
HEENT: NormoCephalic, Moist mucous membranes and Atraumatic
Respiratory: Clear
Cardiac: S1/S2 and Regular Rhythm; No Murmur or Rub
GI: Soft, Non Distended, Normal Bowel Sounds and Tender (RUQ ); No Organomegaly
Rectal: Deferred by Provider
Musculoskeletal: No Clubbing, No Cyanosis and No Edema
Skin: No Rash
Neuro: Nonfocal/grossly intact
Laboratory Results
-
09/11/24 17:40
09/11/24 17:40
Laboratory Results
Lactic Acid 2.2 mmol/L (0.7-2.0) H 09/11/24 22:36
Total Bilirubin 1.3 mg/dl (0.2-1.3) 09/11/24 17:40
AST 126 U/L (17-59) H 09/11/24 17:40
ALT 67 U/L (0-50) H 09/11/24 17:40
Alkaline Phosphatase 1205 U/L (38-126) H 09/11/24 17:40
Lipase 90 U/L (23-300) 09/11/24 17:40
Data Reviewed
-
Lab Data: Labs Reviewed by me
Old Records: Reviewed
Impression/Plan
-
IMPRESSION:
PLAN:
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
- CT abdomen pelvis shows severe hepatic metastatic disease with new hepatic metastases and severe hepatomegaly with interval enlargement of the liver, mild colitis in the ascending/hepatic flexure, moderate-sized airspace consolidation in the
posterior basal left lower lobe, extensive diffuse blastic osseous metastatic disease
- Lactic acid 4.3, potassium 5.3 likely due to hypovolemia
- Mild transaminitis
- IV fluids
- Dilaudid for pain, zofran
- Although MRI/MRCP could be considered to evaluate the bile ducts, it would be rare for squamous cell cancer of the tongue to metastasize there, doubt choledocholithiasis
- Patient needs to follow-up with oncologist at [facility] for initiation of Keytruda once pain is controlled
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
# Mild hyperkalemia likely secondary to hypovolemia
- Monitor with IV fluids
# Elevated alkaline phosphatase secondary to liver/bone metastasis
History of tongue cancer status post chemotherapy/radiation
Essential hypertension
- Continue amlodipine
Chronic neuropathy
- Continue gabapentin
History of C5/C6 fracture
Chronic anemia
- Hemoglobin stable
Full code
DVT prophylaxis�heparin
Regular diet
[2024-09-12] VITALS (12 sets, daily range): BP systolic 110–125; BP diastolic 60–73
[2024-09-12] MEDS: NSS 1000 IV (03:35)
[2024-09-12 04:18] LABS: Lactic Acid 2.2 mmol/L (0.7-2.0)
[2024-09-12 06:28] LABS: Hematocrit 25.7 % (39.0-52.0); Hemoglobin 8.6 g/dL (13.0-18.0); Mean Corp Hgb Conc. 33.5 g/dL (33.0-37.0); Mean Corpuscular Volume 86.5 fL (80.0-94.0); Red Blood Cell Count 2.97 10^6/uL (4.70-6.10); Red Cell Dist. Width 26.7 % (11.5-14.5); White Blood Cell Count 7.4 10^3/uL (4.8-10.8)
[2024-09-12 06:44] LABS: ALT (SGPT) 53 U/L (0-50); AST (SGOT) 103 U/L (17-59); Albumin 2.8 g/dl (3.5-5.0); Alkaline Phosphatase 996 U/L (38-126); Blood Urea Nitrogen 30 mg/dl (9-20); Calcium 7.9 mg/dl (8.4-10.2); Carbon Dioxide 24 mmol/L (22-30); Chloride 105 mmol/L (98-107); Estimated Creatinine Clearance 102 ml/min; Glucose 89 mg/dl (70-99); Potassium 4.8 mmol/L (3.5-5.1); Sodium 135 mmol/L (135-145); Total Bilirubin 1.2 mg/dl (0.2-1.3); Total Protein 5.1 g/dl (6.3-8.2); eGFR > 60.00
[2024-09-12 07:50] LABS: Mean Platelet Volume 9.2 fL (7.4-10.4); Platelet Count 97 10^3/uL (130-400)
[2024-09-12 07:53] LABS: Absolute Neutrophils -Man Diff 5.7 10^3/uL (1.4-6.5); Band Neutrophils 2 % (0-3); Lymphocytes 13 % (20-51); Monocytes 8 % (2-9); Nucleated Red Blood Cells 5 (-); Segmented Neutrophils 76 % (42-75)
[2024-09-12 07:54] LABS: Total Cells Counted 100
[2024-09-12 07:55] LABS: Platelets Checked Yes
[2024-09-12] MEDS: NEURONTIN 600 MG PO (08:21)
[2024-09-12] MEDS: DILAUDID 0.5 MG IV (08:22)
[2024-09-12] MEDS: HEPARIN 5000 UNITS SC (08:22)
--- NOTE | 2024-09-12 08:24 | VNURNOTE ---
Chart reviewed. Patient is current with [facility] nursing. Will continue to follow hospital course and DC plans.
[2024-09-12 12:09] LABS: Lactic Acid 1.9 mmol/L (0.7-2.0)
--- NOTE | 2024-09-12 12:51 | W.DCSUMMARY ---
Discharge Summary
Discharge Data
Date of Admission: 09/11/24
Date of Discharge: 09/12/24
-
Pending Results: No
Hospital Course
Mr. 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 He was found to have abnormal LFTs
and elevated lactic acid. He follows with his primary oncologist at [facility], where biopsy confirmed liver metastases from tongue primary. He was planned to start Keytruda today 09/12 at [facility], however this has
been delayed due to current hospitalization.
His abdominal pain is reasonably well-controlled with opiate pain medication as needed. His elevated lactic acid resolved to within normal limits with IV fluids. He has mild but persistent elevation of AST/ALT/alk phos without hyperbilirubinemia.
Ultrasound of his right upper quadrant showed mild enlargement of common bile duct and intrahepatic bile ducts in addition to thickened and edematous gallbladder likely reactive due to diffuse metastatic disease in the liver. Discussed findings
with GI who advised that biliary stenting would not be helpful in this case and recommended palliative care discussion would be reasonable.
Patient would like to follow-up with his primary oncologist at [facility] for ongoing management. He will be given a short course of oral pain medications for comfort until he is able to follow-up with his oncologist. He has
normocytic anemia and thrombocytopenia without evidence of bleeding. This is not unexpected in the setting of his liver disease and should continue to be monitored in the outpatient setting. He remained afebrile and normotensive throughout his
hospitalization. He was medically stable at time of hospital discharge.
General: No Apparent Distress, Comfortable and Conversant
HEENT: NormoCephalic, Moist mucous membranes, Atraumatic
Respiratory: Clear and Non Labored Respirations
Cardiac: S1/S2 and Regular Rhythm; No Rub or Gallop
GI: Soft, mild TTP epigastrium and right upper quadrant, Non Distended and Normal Bowel Sounds
Musculoskeletal: No Edema, no deformity
: NO Corral
Neuro: Awake, Alert, Nonfocal/grossly intact
Psych: Calm and Intact Judgment/Insight
More than 30 minutes spent in discharge including
Final examination of the patient
Summarizing hospital stay
Instructions for continuing care to all relevant caregivers
Preparation of discharge records, prescriptions, and referral forms
Total time spent (in minutes): 50
Discharge Plan
-
Patient Disposition: Home (Routine Discharge)
Discharge Diagnosis/Procedures: Abdominal pain with abnormal LFTs due to cancer with liver metastases
Diet: No restrictions
Activity: As tolerated
Activity Restrictions/Additional Instructions:
Mr. 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 He was found to have abnormal LFTs
and elevated lactic acid. He follows with his primary oncologist at [facility], where biopsy confirmed liver metastases from tongue primary. He was planned to start Keytruda today 09/12 at [facility], however this has
been delayed due to current hospitalization.
His abdominal pain is reasonably well-controlled with opiate pain medication as needed. His elevated lactic acid resolved to within normal limits with IV fluids. He has mild but persistent elevation of AST/ALT/alk phos without hyperbilirubinemia.
Ultrasound of his right upper quadrant showed mild enlargement of common bile duct and intrahepatic bile ducts in addition to thickened and edematous gallbladder likely reactive due to diffuse metastatic disease in the liver. Discussed findings
with GI who advised that biliary stenting would not be helpful in this case and recommended palliative care discussion would be reasonable.
Patient would like to follow-up with his primary oncologist at [facility] for ongoing management. He will be given a short course of oral pain medications for comfort until he is able to follow-up with his oncologist. He has
normocytic anemia and thrombocytopenia without evidence of bleeding. This is not unexpected in the setting of his liver disease and should continue to be monitored in the outpatient setting. He remained afebrile and normotensive throughout his
hospitalization. He was medically stable at time of hospital discharge.
Referrals:
Simona Rod DO [Family Provider] -
Prescriptions:
New
oxycodone 5 mg tablet
5 mg PO Q6H PRN (Reason: Pain) Qty: 20 0RF
Continued
amlodipine 5 mg Tablet
5 mg PO Q48H
sucralfate [Carafate] 100 mg/mL Suspension
10 ml PO ACHS
gabapentin 300 mg Capsule
600 mg PO TID
Discharge Orders:
Discharge Patient (As Directed); Ordered 09/12/24
Ordered By: Jayme Roth
Discharge Date and Time
Print Language: FILIPINO
== END 2024-09-12 14:05 | disposition home or self-care (01) | DRG 436 ==
LOC: ED 23:59
PROVIDERS: Emergency Medicine; Physician Assistant; ADMITTING PHYSICIAN Hospitalist; ATTENDING PHYSICIAN Internal Medicine; EMERGENCY PHYSICIAN Emergency Medicine; FAMILY PHYSICIAN Family Medicine
DX: C78.7 Secondary malignant neoplasm of liver and intrahepatic bile duct (principal); C79.51 Secondary malignant neoplasm of bone; E87.20 Acidosis, unspecified; R79.89 Other specified abnormal findings of blood chemistry; D64.9 Anemia, unspecified; D69.6 Thrombocytopenia, unspecified; I10 Essential (primary) hypertension; E86.1 Hypovolemia; E87.5 Hyperkalemia; G62.9 Polyneuropathy, unspecified; Z85.810 Personal history of malignant neoplasm of tongue; Z92.3 Personal history of irradiation; Z92.21 Personal history of antineoplastic chemotherapy; Z80.0 Family history of malignant neoplasm of digestive organs
CPT/HCPCS: 74177; 76705; 80053; 83605; 83690; 85025; Q9967

== ENCOUNTER 2024-09-14 13:05 | Inpatient (IN) | payer OTHER, SELFPAY ==
[2024-09-14] VITALS (10 sets, daily range): BP systolic 119–145; BP diastolic 77–91; BMI 3496.3; BMI 25.4; BMI 24.4
[2024-09-14] MEDS: ROCEPHIN 1000 MG IV (11:42)
[2024-09-14] MEDS: ZITHROMAX INFUSION 250 IV (11:42)
[2024-09-14 11:44] LABS: Blood Urea Nitrogen 49 mg/dl (9-20); Calcium 8.2 mg/dl (8.4-10.2); Carbon Dioxide 22 mmol/L (22-30); Chloride 104 mmol/L (98-107); Estimated Creatinine Clearance -11 ml/min; Glucose 148 mg/dl (70-99); Sodium 136 mmol/L (135-145); eGFR 55.88
[2024-09-14 11:47] LABS: COVID-19 Antigen Negative (Negative)
[2024-09-14 11:54] LABS: Hematocrit 31.5 % (39.0-52.0); Hemoglobin 10.6 g/dL (13.0-18.0); Mean Corp Hgb Conc. 33.7 g/dL (33.0-37.0); Mean Corpuscular Volume 86.1 fL (80.0-94.0); Mean Platelet Volume 9.8 fL (7.4-10.4); Platelet Count 132 10^3/uL (130-400); Red Blood Cell Count 3.66 10^6/uL (4.70-6.10); Red Cell Dist. Width 27.4 % (11.5-14.5); White Blood Cell Count 3.5 10^3/uL (4.8-10.8)
[2024-09-14 11:58] LABS: NT-proBNP 2130 pg/ml; Troponin I 0.055 ng/ml
--- NOTE | 2024-09-14 12:27 | HPS.HSE ---
Family Physician
-
Family Physician: Simona Rod
Chief Complaint
-
Low POx , 911 called by home VN
History of Present Illness
HPI
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
- reports lung sounds junky and congested
- Home VN note POx low ? < 90s
- called 911
Medical History
Past Medical History
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
Past Surgical History: Reports None
Social History
Tobacco: Non-smoker
Alcohol: Occasional
Drug: None
Family History
Family History: Not pertinent
Allergies / Home Medications
Allergies reflects when Allergies were last updated in [facility].
Home Medications with original date entered in Via
Allergy/Medication List:
Allergies
Allergy/AdvReac Type Severity Reaction Status Date / Time
No Known Allergies Allergy Verified 07/16/24 10:41
Home Medications
amlodipine 5 mg tablet 5 mg PO Q48H Blood Pressure 07/16/24
gabapentin 300 mg tablet 600 mg PO TID Pain 07/16/24
Review of Systems
-
Constitutional: Reports No Symptoms
EENT: Reports No Symptoms
Respiratory: Reports See HPI, Trouble Breathing and Other (low POx at home )
Cardiac: Reports No Symptoms
Abdomen/GI: Reports No Symptoms
: Reports No Symptoms
Musculoskeletal: Reports No Symptoms
Skin: Reports No Symptoms
Neurological: Reports No Symptoms
Endocrine: Reports No Symptoms
Hematologic/Lymphatic: Reports No Symptoms
Psych: Reports No Symptoms
Physical Exam
Vital Signs
Vital Signs
Temp Pulse Resp BP Pulse Ox
97.8 F 99 15 119/85 94
09/14/24 10:48 09/14/24 12:00 09/14/24 12:00 09/14/24 12:00 09/14/24 12:00
Physical Exam
General: Well Developed, Well Nourished and No Apparent Distress
HEENT: NormoCephalic, Moist mucous membranes and Atraumatic
Respiratory: Clear
Cardiac: S1/S2 and Regular Rhythm; No Murmur or Rub
GI: Soft, Non Distended and Normal Bowel Sounds; No Organomegaly
Rectal: Deferred by Provider
Musculoskeletal: No Clubbing, No Cyanosis and No Edema
Skin: No Rash
Neuro: Nonfocal/grossly intact
Laboratory Results
-
09/14/24 11:02
09/14/24 11:02
Laboratory Results
Troponin I 0.055 ng/ml H* 09/14/24 11:02
Data Reviewed
-
Diagnostic Radiology: Report Reviewed by me
Lab Data: Labs Reviewed by me
Old Records: Reviewed
Impression/Plan
-
Data
WCC 3.5 ( was 7.4 on 09/12/24)
Hgb 10.6 ( bl 11, 10.8, 8.6) Nl MCV
Plt 132 (bl0.7s)
BUN 49
Cr 1.3 (bl 0.7s)
eGFR 55.88 ( bl >60s)
Elevated abn TPNI at 0.05
Pro BNP 0.055
NEG Covid
NEG Flu A & B
BCX x 2
EKG report
SINUS TACHYCARDIA
RIGHT BUNDLE BRANCH BLOCK
ABNORMAL ECG
NO PREVIOUS ECGS AVAILABLE
CXR
Bilateral parenchymal opacities, most likely representing pneumonia. It is possible but there is also a component of neoplastic disease. Continued follow-up with radiographs and/or CT may be helpful.
Last hospitalist admission: - 09/12/24
Discharge Diagnosis/Procedures: Abdominal pain with abnormal LFTs due to cancer with liver metastases
ASSESSMENT & PLAN
Multilobar PNA with associated sepsis ( with Tachycardia and WCC< 4 )
Hypoxic RI needs NC O2
Known HX Mets CA Underlying neoplastic process
- ER initiated IV CFX and Azithro and will continue
- O2 support to keep POx > 93%
- check PCT
Borderline LINCOLN wit azotemia suspect pre renaql origing due to dehydration
Azotemia
- IV NS @ 80/H x 1 L
- Trend BMPs
Elevated abn TPNI at 0.05 DDX: NIMI vs. NSTEMI
Abn EKG , but no prior EKG , no acute ischemic changes
No CP
- serial TPNIs 3- 6hrs
- EKG in AM
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
HX status post chemotherapy/radiation
Recent discovery of metastases to spine and liver who presented with abdominal pain, was found to have abnormal LFTs and elevated lactic acid. He follows with his primary oncologist at [facility], where biopsy confirmed liver
metastases from tongue primary
- He was planned to start Keytruda on 09/12 at [facility], however this has been delayed due to last hospitalization.
- follow-up with his primary oncologist at [facility] for ongoing management.
Recent admission for abdominal pain is reasonably well-controlled with opiate pain medication as needed.
HX persistent elevation of AST/ALT/alk phos without hyperbilirubinemia.
Elevated alkaline phosphatase secondary to liver/bone metastasis
Recent Ultrasound of his right upper quadrant showed mild enlargement of CBD and IHDs in addition to thickened and edematous gallbladder likely reactive due to diffuse metastatic disease in the liver.
- per consult with GI on last admission, h GI who advised that biliary stenting would not be helpful in this case and recommended palliative care discussion would be reasonable.
- Dilaudid for pain, Zofran
- plan to follow-up with oncologist at [facility] for initiation of Keytruda once pain is controlled
Essential hypertension
- Continue amlodipine
Chronic neuropathy
- Continue gabapentin
HX C5/C6 fracture
Chronic anemia
- Hemoglobin stable
Palliative vs Hospice care patient
DVT Px: SQH
Code: DNR per patient in the presence of ER attd
IP TLM
[2024-09-14 14:13] LABS: Absolute Neutrophils -Man Diff 2.7 10^3/uL (1.4-6.5); Band Neutrophils 32 % (0-3); Lymphocytes 10 % (20-51); Segmented Neutrophils 47 % (42-75)
[2024-09-14 14:14] LABS: Atypical Lymphocytes 3 %; Metamyelocytes 2 % (-); Monocytes 6 % (2-9); Normal RBC Morphology Yes; Platelets Checked Yes; Total Cells Counted 100; Toxic Granulation 1+
[2024-09-14 14:17] LABS: Nucleated Red Blood Cells 10 (-)
--- NOTE | 2024-09-14 17:40 | PTCARENOTE ---
Received patient from ED on stretcher on 10L NC, assist x3 to slide patient from stretcher to bed. AAOx3, at bedside, patient answered admission questions without difficulty. On 10L NC patient noted to be 88%-90%, denies SOB. Admitting MD
notified of patient only reaching 90% on 10L, new orders for patient to transfer to IMU. at bedside was made aware of unit/room change. When IMU bed was available, report given to JANEE Calderon and patient transferred to IMU. Belongings sent with
patient.
[2024-09-14] MEDS: LOVENOX 40 MG SC (20:48)
[2024-09-14] MEDS: CARAFATE SUSPENSION 1 GM PO (20:49)
[2024-09-14] MEDS: NEURONTIN 300 MG PO (20:49)
[2024-09-14] MEDS: CARAFATE SUSPENSION PO (21:06)
--- NOTE | 2024-09-14 21:25 | PTCARENOTE ---
Received pt [facility] @19:45. Pt aaox3, able to make needs known. Pt on 10L MFNC on arrival. Increased to 15L MFNC with humidification to keep SaO2 above 93%. Respiratory therapist notified. 1700 troponin drawn and sent to lab. Results show trop
trending down. Pt able to take PO meds with applesauce but with significant difficulty and multiple attempts to swallow pill. Call eugene and belongings within reach. Care ongoing.
[2024-09-14 21:40] LABS: Troponin I 0.042 ng/ml
[2024-09-14] MEDS: LOTRIMIN 1% CREAM 1 APPLIC TOPICAL (23:58)
[2024-09-15] VITALS (12 sets, daily range): BP systolic 114–149; BP diastolic 73–86; BMI 24.3
--- NOTE | 2024-09-15 00:05 | PTCARENOTE ---
Lotrimin cream ordered for fungal rash on R foot.
[2024-09-15 04:56] LABS: Hematocrit 26.8 % (39.0-52.0); Hemoglobin 9.1 g/dL (13.0-18.0); Mean Corpuscular Hgb 29.2 pg (27.0-31.0); Mean Corpuscular Volume 85.9 fL (80.0-94.0); Platelet Count 117 10^3/uL (130-400); Red Blood Cell Count 3.12 10^6/uL (4.70-6.10); Red Cell Dist. Width 27.1 % (11.5-14.5); White Blood Cell Count 4.1 10^3/uL (4.8-10.8)
[2024-09-15 05:06] LABS: ALT (SGPT) 159 U/L (0-50); AST (SGOT) 400 U/L (17-59); Albumin 2.4 g/dl (3.5-5.0); Alkaline Phosphatase 642 U/L (38-126); Blood Urea Nitrogen 49 mg/dl (9-20); Carbon Dioxide 27 mmol/L (22-30); Chloride 106 mmol/L (98-107); Estimated Creatinine Clearance 56 ml/min; Glucose 131 mg/dl (70-99); Potassium 4.2 mmol/L (3.5-5.1); Sodium 138 mmol/L (135-145); Total Bilirubin 1.3 mg/dl (0.2-1.3); Total Protein 4.7 g/dl (6.3-8.2); eGFR > 60.00
[2024-09-15 05:16] LABS: Troponin I 0.027 ng/ml
[2024-09-15] MEDS: DILAUDID 0.25 MG IV ×2 (05:29→19:27)
[2024-09-15] MEDS: NEURONTIN 300 MG PO ×2 (07:58→17:41)
[2024-09-15] MEDS: ZITHROMAX 500 MG PO (07:58)
[2024-09-15] MEDS: CARAFATE SUSPENSION 1 GM PO ×2 (07:58→17:41)
[2024-09-15] MEDS: LOTRIMIN 1% CREAM 1 APPLIC TOPICAL ×2 (07:59→19:27)
[2024-09-15] MEDS: CARAFATE SUSPENSION PO ×2 (11:24→21:29)
[2024-09-15] MEDS: ROCEPHIN 1000 MG IV (13:04)
[2024-09-15] MEDS: STERILE WATER FOR INJECTION 10 ML IV (13:05)
--- NOTE | 2024-09-15 15:12 | W.PN.HOSP.TC ---
Today's Communication/Plan
-
see outlined plan below
Assessment / Plan
Assessment / Plan
Assessment:
Acute hypoxic respiratory failure on 14L NC
Multi-focal community acquired pneumonia
Sepsis POA (tachycardia, leukopenia, bandemia)
- CXR: Bilateral parenchymal opacities, most likely representing pneumonia. It is possible but there is also a component of neoplastic disease.
- CT Chest ordered to evaluate PE, further evaluate PNA or check for metastatic disease in lung
- wean O2 as able
- continue Rocephin, Azithromycin day 1
Borderline LINCOLN with azotemia
- continue IVF
- monitor BMP
Nonischemic myocardial injury
- denies chest pain
- trop peaked at 0.05
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
- OP oncology f/u @ [facility]
- eventual initiation of Keytruda planned
Recent admission for abdominal pain is reasonably well-controlled with opiate pain medication as needed.
HX persistent elevation of AST/ALT/alk phos without hyperbilirubinemia.
Elevated alkaline phosphatase secondary to liver/bone metastasis
recent Ultrasound of his right upper quadrant showed mild enlargement of CBD and IHDs in addition to thickened and edematous gallbladder likely reactive due to diffuse metastatic disease in the liver.
- per consult with GI on last admission, h GI who advised that biliary stenting would not be helpful in this case and recommended palliative care discussion would be reasonable.
- Dilaudid for pain, Zofran
- OP oncology f/u @ [facility]
Essential hypertension
- continue amlodipine
Chronic neuropathy
- continue gabapentin
HX C5/C6 fracture
Chronic anemia
- Hemoglobin stable
DVT ppx: Lovenox
Code: DNR/DNI
Anticipated Discharge: > 48 hours
Subjective/Interval History
-
Date of Service: September 15, 2024
up to 14L NC
SOB with activity but not rest
no chest pain
no fever/chills
Objective Data
-
Labs:
Laboratory Results
09/15/24
04:22
WBC 4.1 L
Hgb 9.1 L
Hct 26.8 L
Plt Count 117 L
Sodium 138
Potassium 4.2
Chloride 106
Carbon Dioxide 27
BUN 49 H
Creatinine 1.0
Glucose 131 H
Calcium 8.0 L
Total Bilirubin 1.3
AST 400 H
ALT 159 H
Alkaline Phosphatase 642 H
Vital Signs:
Vital Signs
Temp Pulse Resp BP Pulse Ox
98.1 F 83 20 122/78 97
09/15/24 11:15 09/15/24 06:00 09/15/24 06:00 09/15/24 06:00 09/15/24 10:56
I&O
09/14/24 09/15/24 09/16/24
06:59 06:59 06:59
Intake Total 240 / 240
Output Total 200 / 200
Balance 40 / 40
Physical Exam
-
General: No Apparent Distress
HEENT: Normocephalic and Atraumatic
Respiratory: Rhonchi
Cardiac: Regular Rhythm and S1/S2
GI: Soft
Neuro: AO x 3
Psych: Calm
Data Reviewed
-
Total Time Spent with Patient (in minutes): 45
Labs: Labs Reviewed by me
[2024-09-15] MEDS: LOVENOX 40 MG SC (17:41)
--- NOTE | 2024-09-15 18:46 | PTOTSP ---
ST Acute Care Evaluation
Pt currently presents with clinical signs of suspected moderately-severe pharyngoesophageal dysphagia as evidenced by throat clearing, coughing, and marked desaturations with small and large quantities of thin liquids, persistent piecemeal
deglutition with both solids and liquids, and insufficient pharyngeal transit of solids through UES that places pt at a high risk for content to be aspirated.
Recommendations:
- STRICT NPO; NO ORAL MEDS; NO ARHP - not appropriate.
- Strict aspiration and reflux precautions: HOB upright as often as possible; oral care q4 hours.
- Consider swish and spit magic mouth wash - pt presents with clinical signs consistent with oral thrush on lingual surface.
- Video fluoroscopic swallow study (VFSS) for more information about swallow function if pt's GOC are restorative at this time. If pt opts for comfort feeds, would consider pureed solids with thin liquids for better mucociliary clearance.
- BAG PRESSER to plan to complete VFSS on Tuesday unless otherwise indicated.
[2024-09-15] MEDS: NEURONTIN PO (21:29)
[2024-09-16] VITALS (12 sets, daily range): BP systolic 118–142; BP diastolic 75–100
--- NOTE | 2024-09-16 01:54 | PTCARENOTE ---
Pt aaox3, able to make needs known. Strict NPO per speech therapy recommendations. All PO meds held at this time. Pt states that he does not wish to receive a feeding tube or any restorative measures. He wishes to be discharged home on hospice
tomorrow. Remains on 15L MFNC, SaO2 94%.
[2024-09-16] MEDS: DILAUDID 0.25 MG IV ×2 (04:13→11:58)
[2024-09-16 04:26] LABS: Hematocrit 29.3 % (39.0-52.0); Hemoglobin 9.6 g/dL (13.0-18.0); Mean Corp Hgb Conc. 32.8 g/dL (33.0-37.0); Mean Corpuscular Hgb 28.7 pg (27.0-31.0); Mean Corpuscular Volume 87.7 fL (80.0-94.0); Mean Platelet Volume 9.4 fL (7.4-10.4); Platelet Count 111 10^3/uL (130-400); Red Blood Cell Count 3.34 10^6/uL (4.70-6.10); Red Cell Dist. Width 27.3 % (11.5-14.5); White Blood Cell Count 3.7 10^3/uL (4.8-10.8)
[2024-09-16 04:51] LABS: ALT (SGPT) 127 U/L (0-50); AST (SGOT) 219 U/L (17-59); Albumin 2.5 g/dl (3.5-5.0); Alkaline Phosphatase 861 U/L (38-126); Blood Urea Nitrogen 41 mg/dl (9-20); Carbon Dioxide 28 mmol/L (22-30); Chloride 106 mmol/L (98-107); Estimated Creatinine Clearance 80 ml/min; Glucose 118 mg/dl (70-99); Potassium 4.4 mmol/L (3.5-5.1); Sodium 140 mmol/L (135-145); Total Bilirubin 1.4 mg/dl (0.2-1.3); Total Protein 5.1 g/dl (6.3-8.2); eGFR > 60.00
[2024-09-16] MEDS: CARAFATE SUSPENSION PO ×3 (07:04→16:44)
[2024-09-16] MEDS: ZITHROMAX PO (07:05)
[2024-09-16] MEDS: NEURONTIN PO (07:05)
[2024-09-16] MEDS: LOTRIMIN 1% CREAM 1 APPLIC TOPICAL ×2 (09:21→20:36)
[2024-09-16] MEDS: ROCEPHIN 1000 MG IV (11:58)
[2024-09-16] MEDS: STERILE WATER FOR INJECTION 10 ML IV (11:58)
--- NOTE | 2024-09-16 12:44 | CM ---
Reviewed the chart notes and spoke with the patient at the bedside. The patient resides with his spouse in a two story home with no steps to enter. The reports on DME is a rolling walker. The patient has had [facility] and [facility] in the past. The
patient has been to [facility]. The patient confirmed his pharmacy of choice is [facility]. Patient wants to return to home on hospice. Attending aware. Patient is currently on supplement O2 @ 15L/min. CM continues
to be available to patient/family and is monitoring medical plan for needs at discharge.
Plan: Discharge plans will depend on the patient's progress.
--- NOTE | 2024-09-16 12:56 | W.PN.HOSP.TC ---
Today's Communication/Plan
-
hospice consult
continue IV abx and wean O2 for potential home hospice setting vs GIP. Family updated on both possibilities.
Assessment / Plan
Assessment / Plan
Assessment:
Acute hypoxic respiratory failure on 14L NC
Multi-focal community acquired pneumonia
Sepsis POA (tachycardia, leukopenia, bandemia)
- CXR: Bilateral parenchymal opacities, most likely representing pneumonia. It is possible but there is also a component of neoplastic disease.
- CT Chest: no PE. Trace left and small right pleural effusions with associated bilateral lower lobe consolidations likely reflecting combination of atelectasis and pneumonia. Severe bilateral upper lobe and right middle lobe pneumonia.
- wean O2 as able
- continue Rocephin, Azithromycin day 2
Borderline LINCOLN with azotemia
- continue IVF
- monitor BMP
Nonischemic myocardial injury
- denies chest pain
- trop peaked at 0.05
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
Recent admission for abdominal pain is reasonably well-controlled with opiate pain medication as needed.
HX persistent elevation of AST/ALT/alk phos without hyperbilirubinemia.
Elevated alkaline phosphatase secondary to liver/bone metastasis
recent Ultrasound of his right upper quadrant showed mild enlargement of CBD and IHDs in addition to thickened and edematous gallbladder likely reactive due to diffuse metastatic disease in the liver.
- per consult with GI on last admission, GI who advised that biliary stenting would not be helpful in this case and recommended palliative care discussion would be reasonable.
- continue symptom control
- hospice consult
Essential hypertension
- continue amlodipine
Chronic neuropathy
- continue gabapentin
HX C5/C6 fracture
Chronic anemia
- Hemoglobin stable
DVT ppx: Lovenox
Code: DNR/DNI
Anticipated Discharge: > 48 hours
Subjective/Interval History
-
Date of Service: September 16, 2024
patient requesting hospice services
Objective Data
-
Labs:
Laboratory Results
09/16/24
04:07
WBC 3.7 L
Hgb 9.6 L
Hct 29.3 L
Plt Count 111 L
Sodium 140
Potassium 4.4
Chloride 106
Carbon Dioxide 28
BUN 41 H
Creatinine 0.7
Glucose 118 H
Calcium 8.0 L
Total Bilirubin 1.4 H
AST 219 H
ALT 127 H
Alkaline Phosphatase 861 H
Vital Signs:
Vital Signs
Temp Pulse Resp BP Pulse Ox
97.6 F 80 16 129/79 98
09/16/24 11:30 09/16/24 06:00 09/16/24 06:00 09/16/24 06:00 09/16/24 06:00
I&O
09/15/24 09/16/24 09/17/24
06:59 06:59 06:59
Intake Total 240 / 240 0 / 0
Output Total 200 / 200
Balance 40 / 40 0 / 0
Physical Exam
-
General: No Apparent Distress
HEENT: Normocephalic and Atraumatic
Respiratory: Rhonchi, Crackles and Decreased Breath Sounds
Cardiac: Regular Rhythm and S1/S2
GI: Soft
Neuro: AO x 3
Psych: Calm
Data Reviewed
-
Total Time Spent with Patient (in minutes): 42
Labs: Labs Reviewed by me
--- NOTE | 2024-09-16 13:39 | HOSPNOTE ---
Hospice referral received. Patient is presently requiring 15 liters of oxygen which would be difficult to maintain in the home setting. Per attending, going to monitor over 24-48 hours and continue to treat pneumonia to see how patient responds and
if oxygen can be weaned down. If oxygen can be weaned down then can discuss hospice at home. If unable to wean down then would look into inpatient hospice. Patient and family are hopeful for the home option. They are understanding that inpatient
maybe the only option. All are in agreement to monitor over the next 24-48 hours and then discuss options. Attending and CM updated and in agreement as well. Hospice will continue to follow.
[2024-09-16] MEDS: NEURONTIN 300 MG PO ×2 (16:44→20:37)
[2024-09-16] MEDS: LOVENOX 40 MG SC (18:40)
[2024-09-16] MEDS: CARAFATE SUSPENSION 1 GM PO (20:38)
--- NOTE | 2024-09-16 22:58 | PTCARENOTE ---
Patient aaox3 at start of shift, denies pain. Repositioned for pressure relief and comfort. Dressing to stage 2 pu on sacrum soiled, treatment provided. Patient noted with watery voice with po intake. HOB elevated. Patient continues on 15L o2
midflow with pox 94%. Call eugene within reach, will continue to monitor patient closely.
[2024-09-17] VITALS (9 sets, daily range): BP systolic 134–144; BP diastolic 84–93
--- NOTE | 2024-09-17 05:37 | PTCARENOTE ---
Unable to obtain patients labwork this am with 2 RN's attempting. Will reach out to phlebotomy for lab draw this am. Am care provided, mottling noted to b/l feet and b/l knee's. Patient continues on 15L midflow with pox in the mid 90's. No
observable s/s of distress noted. Call eugene within reach, will continue to monitor closely.
--- NOTE | 2024-09-17 09:05 | VNURNOTE ---
Chart reviewed. Patient is current with [facility] nursing. Will continue to follow hospital course and DC plans.
--- NOTE | 2024-09-17 09:14 | W.PN.HOSP.TC ---
Today's Communication/Plan
-
follow up hospice conversation
Assessment / Plan
Assessment / Plan
Assessment:
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
Recent admission for abdominal pain is reasonably well-controlled with opiate pain medication as needed.
HX persistent elevation of AST/ALT/alk phos without hyperbilirubinemia.
Elevated alkaline phosphatase secondary to liver/bone metastasis
recent Ultrasound of his right upper quadrant showed mild enlargement of CBD and IHDs in addition to thickened and edematous gallbladder likely reactive due to diffuse metastatic disease in the liver.
- per consult with GI on last admission, GI who advised that biliary stenting would not be helpful in this case and recommended palliative care discussion would be reasonable.
- continue symptom control
- hospice consult - patient will likely require inpatient hospice given high oxygen needs. follow up further talks today
Acute hypoxic respiratory failure on 14L NC
Multi-focal community acquired pneumonia
Sepsis POA (tachycardia, leukopenia, bandemia)
concern for aspiration Pneumonia; strict NPO recommended by ST
- CXR: Bilateral parenchymal opacities, most likely representing pneumonia. It is possible but there is also a component of neoplastic disease.
- CT Chest: no PE. Trace left and small right pleural effusions with associated bilateral lower lobe consolidations likely reflecting combination of atelectasis and pneumonia. Severe bilateral upper lobe and right middle lobe pneumonia.
- wean O2 as able
- continue Rocephin, Azithromycin day 3; will discontinue antibiotics once decision for hospice made
Borderline LINCOLN with azotemia
- stop fluids
- monitor BMP
Nonischemic myocardial injury
- denies chest pain
- trop peaked at 0.05
Essential hypertension
- continue amlodipine
Chronic neuropathy
- continue gabapentin
HX C5/C6 fracture
Chronic anemia
- Hemoglobin stable
DVT ppx: Lovenox
Code: DNR/DNI
Anticipated Discharge: 24 - 48 hours
Subjective/Interval History
-
Date of Service: September 17, 2024
no new complaints
Objective Data
-
Labs:
Laboratory Results
09/17/24
06:00
WBC Pending
Hgb Pending
Hct Pending
Plt Count Pending
Sodium Pending
Potassium Pending
Chloride Pending
Carbon Dioxide Pending
BUN Pending
Creatinine Pending
Glucose Pending
Calcium Pending
Total Bilirubin Pending
AST Pending
ALT Pending
Alkaline Phosphatase Pending
Vital Signs:
Vital Signs
Temp Pulse Resp BP Pulse Ox
97.4 F 92 24 134/85 95
09/17/24 06:27 09/17/24 06:00 09/17/24 06:00 09/17/24 06:00 09/17/24 04:00
I&O
09/16/24 09/17/24 09/18/24
06:59 06:59 06:59
Intake Total 240 / 240 420 / 420
Output Total 200 / 200
Balance 40 / 40 420 / 420
Review of Systems
-
History Source: Patient
All other systems: Reviewed and negative
Physical Exam
-
General: No Apparent Distress
HEENT: Normocephalic and Atraumatic
Respiratory: Rhonchi, Crackles and Decreased Breath Sounds
Cardiac: Regular Rhythm and S1/S2
GI: Soft
Neuro: AO x 3
Psych: Calm
Data Reviewed
-
Diagnostic Radiology: Report Reviewed by me
Labs: Labs Reviewed by me
[2024-09-17] MEDS: NEURONTIN 300 MG PO ×2 (09:30→16:52)
[2024-09-17] MEDS: ROXICODONE 5 MG PO ×2 (09:30→16:53)
[2024-09-17] MEDS: ZITHROMAX 500 MG PO (09:30)
[2024-09-17] MEDS: CARAFATE SUSPENSION 1 GM PO ×3 (09:30→16:52)
[2024-09-17] MEDS: LOTRIMIN 1% CREAM 1 APPLIC TOPICAL ×2 (09:31→20:08)
[2024-09-17 10:03] LABS: Hematocrit 30.7 % (39.0-52.0); Hemoglobin 10.3 g/dL (13.0-18.0); Mean Corp Hgb Conc. 33.6 g/dL (33.0-37.0); Mean Corpuscular Hgb 28.9 pg (27.0-31.0); Mean Corpuscular Volume 86.2 fL (80.0-94.0); Mean Platelet Volume 10.4 fL (7.4-10.4); Platelet Count 114 10^3/uL (130-400); Red Blood Cell Count 3.56 10^6/uL (4.70-6.10); White Blood Cell Count 5.3 10^3/uL (4.8-10.8)
[2024-09-17 10:06] LABS: ALT (SGPT) 97 U/L (0-50); AST (SGOT) 141 U/L (17-59); Albumin 2.5 g/dl (3.5-5.0); Alkaline Phosphatase 1004 U/L (38-126); Blood Urea Nitrogen 44 mg/dl (9-20); Calcium 7.9 mg/dl (8.4-10.2); Carbon Dioxide 26 mmol/L (22-30); Chloride 110 mmol/L (98-107); Estimated Creatinine Clearance 70 ml/min; Glucose 112 mg/dl (70-99); Potassium 4.3 mmol/L (3.5-5.1); Sodium 142 mmol/L (135-145); Total Bilirubin 1.6 mg/dl (0.2-1.3); Total Protein 4.9 g/dl (6.3-8.2); eGFR > 60.00
--- NOTE | 2024-09-17 11:03 | WOUNDNOTE ---
WOC RN NOTE: Per chart review and discussion with lumber mover, Lizzie, patient is comfort care and will be discharged to hospice tomorrow. TT Dr. Fisher and plan is to cancel WOC consult.
--- NOTE | 2024-09-17 11:16 | HOSPNOTE ---
Patient and spouse in agreement with hospice and the philosophy. Patient will be going home tomorrow via ambulance and once home patient will be signed onto hospice services. CM, Attending aware and OOH DNR needed on chart.
--- NOTE | 2024-09-17 12:40 | PN.CDI ---
CDI
- -
CDI:
Physician Documentation Request
Admit Date: 09/14/24 13:05
Dear Doctor Phillip,
Please review the following and provide your response in the progress notes.
Clinical Indicators:
Pt admitted with Sepsis 2/2 PNA /LINCOLN/ Acute Hypoxic Respiratory Failure
Nutrition consult 09/15, ' Pt reports was 210lbs about 1 year ago before cancer treatment. Pt states has had a poor appetite. CBW: 154lbs 12.232 oz BMI 24.3 normal range. Compared to UBW of 210 lbs pt with a 56 lb (27%) weight loss in [address] able to visulize temporal wasting, some apparent ribs. With weightloss of > 20% in 1 year and < 75% estimated needs > 1 month pt meets AND/ASPEN criteria for severe protein calorie malnutrition of chronic illness. RD to add ensure
daily ...'
Based on the above information and your assessment, which of the following most accurately represents the patient's nutritional status?
Severe Protein Calorie Malnutrition
Other (please specify)
Corder Criteria (ACP Hospitalist 2017)
2 or more criteria must be present for either
non severe or severe malnutrition
Note that the criteria differs related to the
presence of an acute or chronic illness
Acute Illness Chronic Illness
Energy Intake Non Severe: <75% for >7 days Non Severe: <75% for >1 month
Severe: <50% for >5 days Severe: <75% for >1 month
Weight Loss Non Severe: 1-2% over 1 week Non Severe: 5% over 1 month
5% over 1 month 7.5% over 3 months
7.5% over 3 months 10% over 6 months
1 year N/A 20% over 1 year
Severe: >2% over 1 week Severe: >5% over 1 month
>5% over 1 month >7.5% over 3 months
>7.5% over 3 months >10% over 6 months
1 year N/A >20% over 1 year
Body Fat Non Severe: Mild Decrease Non Severe: Mild Loss
Severe: Moderate Decrease Severe: Severe Loss
Muscle Mass Non Severe: Mild Decrease Non Severe: Mild Loss
Severe: Moderate Decrease Severe: Severe Loss
Fluid Accumulation Non Severe: Mild Accumulation Non Severe: Mild Accumulation
Severe: Moderate to severe Severe: Moderate to severe
accumulation accumulation
Reduced Treating Engineer Strength Non Severe: N/A Non Severe: N/A
Severe: Measurably reduced Severe: Measurably reduced
Use of terms such as suspected, likely, concern for, or probable (associated with a specific diagnosis that is being evaluated, monitored, or treated as if it exists) are acceptable and can be coded in the inpatient setting, when documented at the
time of discharge.
Thank you,
Viry Rosenbaum RN
CDI Specialist
[place] [facility]
Please use your independent medical judgment in providing your response.
[2024-09-17] MEDS: STERILE WATER FOR INJECTION 10 ML IV (13:12)
[2024-09-17] MEDS: ROCEPHIN 1000 MG IV (13:12)
--- NOTE | 2024-09-17 16:27 | CM ---
Patient with Hx metastatic tongue cancer with Dx pneumonia, sepsis. O2 decreased from 11L to 8L today. Receiving IV/PO Abx. Roxicodone prn.
Messages with Sherry [facility]; patient is setup to go home tomorrow with Aly, Sherry aware of O2 needs and has ordered home O2. Ambulance requested for 11am tomorrow.
Met with patient and spoke with Chula by phone; both agree to d/c home tomorrow by ambulance with 11am transport time, with [facility]. IMM completed. Reviewed hospice philosopy & benefits. seemd unaware that patient was on bedrest and
that hospice nurse would not be there all day with him at home to render personal care. Explored if she would be primary caregiver. responded saying she works however daughter would help out as well. Initiated discussion re; possible need
for caregiver - receptive to this idea. Provided Caregiver List - left at bedside. says patient already has a hospital bed and she is aware of home O2 delivery as arranged by [facility]. Home address confirmed with patient.
had questions as to whether Keytruda would be continued stating she had not spoken with his oncologist about this. Responded not ususally a covered med under hospice. Message also relayed to Dr Fisher & Sherry [facility], in this regard.
OOH DNR on chart for MD signature.
Plan home tomorrow 11am by ambulance, with [facility].
--- NOTE | 2024-09-17 19:19 | PTCARENOTE ---
Weaned to 8 L midflow today. C/o pain abd- medicated with Roxycodone x2 this shift with good relief. Jaundiced skin tone. Oral care completed- tongue is sore/ macerated - cleaned up with brushing. Turns alittle on own. Takes pills with small
amt applesauce- requested gingle param only-given only few sips out. He is relieved to be going home tomorrow on hospice.
[2024-09-17] MEDS: CARAFATE SUSPENSION PO (20:08)
[2024-09-17] MEDS: NEURONTIN PO (20:08)
[2024-09-17] MEDS: DILAUDID 0.25 MG IV (21:58)
--- NOTE | 2024-09-17 22:11 | PTCARENOTE ---
Dtr Jina present at bedside and states that patient is pulling at tubing and reaching for something. RN assessed, prn medication administered as ordered for comfort. Patient resting with eyes closed, does open eyes to verbal stimuli. Patient
restless at times. Mottling noted to be increasing to b/l LE from this am. This am mottling noted to b/l feet and b/l knees. At this time mottling more perfuse throughout b/l le's. Daughter Jina asking why his legs 'look like that'. Explained
mottling and the dying process. Jina asking to speak to vocational case manager in the am. RN instructed Jina to write down her name and number on the white board in the room for reference. Jina Mendieta # [phone].
Patient repositioned for comfort and pressure relief. O2 decreased to 7L via n/c, patient tolerating well at this time. Call eugene within reach. Will continue to monitor patient closely.
[2024-09-18] MEDS: DILAUDID 0.25 MG IV (04:14)
--- NOTE | 2024-09-18 07:37 | W.PN.HOSP.TC ---
Addendum entered and electronically signed by Jovita Fisher MD 09/19/24 07:08:
Severe Protein Calorie Malnutrition
-comfort care
Original Note:
Today's Communication/Plan
-
comfort care, hospice
Assessment / Plan
Assessment / Plan
Assessment:
Acute hypoxic respiratory failure on 14L NC
Multi-focal community acquired pneumonia
Sepsis POA (tachycardia, leukopenia, bandemia)
concern for aspiration Pneumonia; strict NPO recommended by ST
- CXR: Bilateral parenchymal opacities, most likely representing pneumonia. It is possible but there is also a component of neoplastic disease.
- CT Chest: no PE. Trace left and small right pleural effusions with associated bilateral lower lobe consolidations likely reflecting combination of atelectasis and pneumonia. Severe bilateral upper lobe and right middle lobe pneumonia.
-on 09/17 decision made for home hospice with mid-flow. However, this morning patient is increasingly tachypneic, he is not keeping his oxygen on and he requires a morphine gtt to remain comfortable. and daughter at bedside updated. Discussed
with linen grader
-start IV morphine gtt with bolus PRN , try to get oxygen back on until he is comfortable.
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
Recent admission for abdominal pain is reasonably well-controlled with opiate pain medication as needed.
HX persistent elevation of AST/ALT/alk phos without hyperbilirubinemia.
Elevated alkaline phosphatase secondary to liver/bone metastasis
recent Ultrasound of his right upper quadrant showed mild enlargement of CBD and IHDs in addition to thickened and edematous gallbladder likely reactive due to diffuse metastatic disease in the liver.
- per consult with GI on last admission, GI who advised that biliary stenting would not be helpful in this case and recommended palliative care discussion would be reasonable.
- continue symptom control
Borderline LINCOLN with azotemia
Nonischemic myocardial injury
Essential hypertension - stop amlodipine
Chronic neuropathy - stop gabapentin
HX C5/C6 fracture
Chronic anemia
- Hemoglobin stable
Code: DNR/DNI
51 minutes spent on patient care
Anticipated Discharge: Within 24 hours
Subjective/Interval History
-
Date of Service: September 18, 2024
patient in respiratory distress
He took his oxygen off
Objective Data
-
Vital Signs:
Vital Signs
Temp Pulse Resp BP Pulse Ox
97.8 F 107 19 136/90 94
09/18/24 07:37 09/17/24 18:00 09/17/24 18:00 09/17/24 16:00 09/17/24 22:24
I&O
09/17/24 09/18/24 09/19/24
06:59 06:59 06:59
Intake Total 420 / 420
Balance 420 / 420
Review of Systems
-
Unable to obtain full review of systems at this time due to: Patient Non-verbal
History Source: Patient
Physical Exam
-
General: Other (tachypneic, increased work of breathing)
HEENT: PERRLA
Respiratory: Negative Wheezes
Cardiac: S1/S2 and Tachycardic
GI: Soft and Nontender
Skin: Warm and Dry; Negative Rash
Neuro: Awake
Psych: Agitated
Data Reviewed
-
Diagnostic Radiology: Report Reviewed by me
Labs: Labs Reviewed by me
[2024-09-18] MEDS: MORPHINE SULFATE 2 MG IV (07:46)
--- NOTE | 2024-09-18 08:31 | W.PN.DEATH ---
Pronouncement of
-
Called to see patient to pronounce.
No spontaneous heart tones or respirations noted.
Patient not responsive to verbal stimuli.
Patient is pronounced .
Time of : 08:25
Date of : 09/18/24
Cause of : Severe bilateral upper lobe and right middle lobe pneumonia resulting in hypoxic respiratory failure; in setting of metastatic squamous cell tongue cancer
Family Notified: Yes
--- NOTE | 2024-09-18 08:39 | PTCARENOTE ---
Received this am, daughter at bedside. Pt pulled off oxygen, in resp. distress he refused to put O2 back on/ hands up /shaking head no- RR 40s. Spoke with Dr. Fisher- IV Morphine ordered and given- seen by provider. 0815 daughter came out 'I
think he passed' few agonal breaths when in room eventually ceased - no heart tones auscultated - Dr. Fisher here to pronounce.
--- NOTE | 2024-09-18 09:26 | HOSPNOTE ---
Patient passed peacefully. Spouse is on her way into the hospital. I called and spoke with daughter and gave our condolences. Daughter Jina seems to be grieving appropriately.
--- NOTE | 2024-09-18 10:30 | CM ---
Patient with Hx metastatic tongue cancer with Dx pneumonia, sepsis.
Notified by nurse Louisa that patient had .
Nurse shared that daughter was here and asking for contact.
Met with [facility] who contacted patient's daughter.
Patient today.
--- NOTE | 2024-09-18 13:10 | W.DCSUMMARY ---
Discharge Summary
Discharge Data
Date of Admission: 09/14/24
Date of Discharge: 09/18/24
-
Pending Results: No
Hospital Course
Date of 09/18/24; Time of 8:25 AM
Cause of : Hypoxic Respiratory Failure from Severe bilateral upper lobe and right middle lobe pneumonia; in setting of metastatic squamous cell tongue cancer
Family Notified: Yes
Hospital Course :
Mr. Filemon Mendieta is a 79 yo man with hx essential HTN metastatic squamous cell carcinoma with recent discovery of metastases to spine and liver presents to the ER with congestion and low pulse ox at home. He was found to be septic, imaging showed
multilobar pneumonia. He was started on IV antibiotics and given supplemental oxygen, 14L midflow. ST evaluation completed, strict NPO recommended. GOC discussions had with patient and family and decision made for hospice. Initial plan was for
home hospice but patient became increasingly tachypneic morning of 09/17 requiring IV morphine. He at 8:25 AM. Daughter and updated.
Important imaging findings :
CHEST CT 09/15/24
IMPRESSION:
1. No evidence of pulmonary embolism.
2. Trace left and small right pleural effusions with associated bilateral lower lobe consolidations likely reflecting combination of atelectasis and pneumonia. Severe bilateral upper lobe and right middle lobe pneumonia.
3. Worsening diffuse hepatic metastases, partially visualized.
4. Redemonstration of diffuse sclerotic osseous metastases.
Procedure findings :
Discharge Plan
-
Patient Disposition:
Date/Time
Date/Time: 09/18/24 08:25
Discharge Date and Time
Discharge Date/Time: 09/18/24 11:08
Print Language: PERSIAN
== END 2024-09-18 11:08 | disposition expired | DRG 871 ==
LOC: IMU 13:05
PROVIDERS: Internal Medicine; ADMITTING PHYSICIAN Internal Medicine; ATTENDING PHYSICIAN Student in an Organized Health Care Education/Training Program; EMERGENCY PHYSICIAN Emergency Medicine; FAMILY PHYSICIAN Family Medicine
DX: A41.9 Sepsis, unspecified organism (principal); E43 Unspecified severe protein-calorie malnutrition; J18.9 Pneumonia, unspecified organism; J96.01 Acute respiratory failure with hypoxia; C78.7 Secondary malignant neoplasm of liver and intrahepatic bile duct; C79.51 Secondary malignant neoplasm of bone; N17.9 Acute kidney failure, unspecified; E87.20 Acidosis, unspecified; C02.9 Malignant neoplasm of tongue, unspecified; I10 Essential (primary) hypertension; G62.9 Polyneuropathy, unspecified; D64.9 Anemia, unspecified; Z66 Do not resuscitate; Z11.52 Encounter for screening for COVID-19; Z68.24 Body mass index [BMI] 24.0-24.9, adult
CPT/HCPCS: 71045; 71275; 80048; 80053; 83880; 84484; 85025; 85027; 87040; 87502; 87811; 92610; 93005; 94760; 96365; 96375; 99285; Q9967